=== PATIENT | female | born 1955 | race Asian ===

== ENCOUNTER 2022-03-09 14:14 | Outpatient (CLI) | payer MEDICARE, MEDICAID, SELFPAY | END 2022-03-09 14:15 | disposition home or self-care (01) | PROVIDERS: PCP Family Medicine; Visit Provider Student in an Organized Health Care Education/Training Program | DX: R39.15 Urgency of urination (principal); R32 Unspecified urinary incontinence; R30.0 Dysuria | CPT/HCPCS: 87086 ==

== ENCOUNTER 2022-06-13 07:21 | Outpatient (CLI) | payer MEDICARE, MEDICAID, SELFPAY | END 2022-06-13 07:22 | disposition home or self-care (01) | LOC: INJ CL 07:24 | PROVIDERS: PCP Family Medicine; Visit Provider Family Medicine | DX: M51.36 Other intervertebral disc degeneration, lumbar region (principal); M54.16 Radiculopathy, lumbar region | CPT/HCPCS: 64483; J1100; Q9966 ==

== ENCOUNTER 2022-08-08 09:32 | Outpatient (CLI) | payer MEDICARE, MEDICAID, SELFPAY | END 2022-08-08 09:33 | disposition home or self-care (01) | LOC: INJ CL 09:33 | PROVIDERS: PCP Student in an Organized Health Care Education/Training Program; Visit Provider Family Medicine | DX: M47.816 Spondylosis without myelopathy or radiculopathy, lumbar region (principal) | CPT/HCPCS: 64493; 64494; J0702; Q9966 ==

== ENCOUNTER 2022-12-11 09:30 | Emergency (ER) | payer MEDICARE, OTHER, SELFPAY ==
[2022-12-11 09:35] VITALS: BP 101/71; PULSE 91; RESP 18; TEMP 35.8; O2SAT 96; BMI 36.9
--- NOTE | 2022-12-11 09:52 | ED.PSYCH ---
HPI - Psych General Time Seen by Provider: 09:52 <Malou Granado MD - Last Filed: 12/11/22 16:13> Date Seen: 12/11/22 <Malou Granado MD - Last Filed: 12/11/22 16:13> Chief Complaint: Psychiatric Problem/Disorder <Malou Granado MD - Last Filed: 12/11/22 16:13> Stated Complaint: Mental health <Malou Granado MD - Last Filed: 12/11/22 16:13> Time Seen by Provider: 12/11/22 09:51 <Malou Granado MD - Last Filed: 12/11/22 16:13> Source: patient and RN notes reviewed <Malou Granado MD - Last Filed: 12/11/22 16:13> Mode of arrival: ambulatory <Malou Granado MD - Last Filed: 12/11/22 16:13> Limitations: no limitations <Malou Granado MD - Last Filed: 12/11/22 16:13> History of Present Illness HPI Narrative: Patient is a 67-year-old female coming in with suicidal ideation. She has been thinking about suicide, cannot stop these thoughts. Has thought about carbon monoxide, taking pills, antifreeze. Have reviewed nursing notes, the intake note on her. She has not been sick with anything, denies any fevers chills. She does endorse some mild nausea and mild headache at this time. She has had psychiatric hospitalizations years ago, did have ECT at [place] maybe 7-10 years ago. She had a tele visit with her therapist, this resulted in recommendations to come to the ER per patient report. She sees a Dr. Quintanilla for her therapist at [facility]. Bethnandini godinez does her medication management here at [facility]. She believes she is on for psychiatric medicines at this time including Abilify, bupropion, mirtazapine, sertraline. When ask her if she his taken anything, ingested anything, she states ?not yet?. <Malou Granado MD - Last Filed: 12/11/22 16:13> MD complaint: suicidal ideation <Malou Granado MD - Last Filed: 12/11/22 16:13> Related Data Home Medications: Home Medications Medication Instructions Recorded Confirmed aripiprazole 30 mg tablet 30 mg PO 03/09/22 03/09/22 bupropion HCl 150 mg 24 hr tablet, mg PO 03/09/22 03/09/22 extended release nabumetone 750 mg tablet 750 mg PO 03/09/22 03/09/22 sertraline 100 mg tablet 100 mg PO 03/09/22 03/09/22 trazodone 50 mg tablet 50 mg PO 03/09/22 03/09/22 GNP 12/11/22 aripiprazole 20 mg tablet 20 mg PO DAILY 12/11/22 12/11/22 celecoxib 200 mg capsule 200 mg PO BID 12/11/22 12/11/22 divalproex 250 mg tablet,delayed 250 mg PO QPM 12/11/22 12/11/22 release methocarbamol 500 mg tablet 500 mg PO Q6H PRN muscle spasm 12/11/22 12/11/22 <Malou Granado MD - Last Filed: 12/11/22 16:13> Allergies/Adverse Reactions: Allergies Allergy/AdvReac Type Severity Reaction Status Date / Time Sulfa (Sulfonamide Allergy Mild Rash Verified 03/09/22 13:48 Antibiotics) amoxicillin Allergy Verified 06/13/22 08:06 lurasidone [From Latuda] Allergy Verified 06/13/22 08:06 sulfamethoxazole Allergy Verified 06/13/22 08:06 [From Septra] trimethoprim [From Septra] Allergy Verified 06/13/22 08:06 <Malou Granado MD - Last Filed: 12/11/22 16:13> Review of Systems Status of ROS: Reports: 6 or more systems reviewed and unremarkable except as noted in History and below <Malou Granado MD - Last Filed: 12/11/22 16:13> PFSH PFSH Social History: Social History Smoking Status: Never smoker How often do you have a drink containing alcohol: never AUDIT-C Alcohol total score: 0 Non-prescribed substance use: denies use <Malou Granado MD - Last Filed: 12/11/22 16:13> Exam Const: Vital Signs, click to edit/add: Vital Signs - 24 hr 12/11/22 09:35 12/11/22 17:35 12/11/22 20:57 Temperature 96.4 F L Pulse Rate [Pulse Oximeter] 91 76 65 Respiratory Rate 18 22 18 Blood Pressure [Ri ght Upper Arm] 101/71 137/74 108/65 Pulse Oximetry 96 99 94 Oxygen Delivery Me thod Room Air Room Air Room Air 12/11/22 23:00 12/12/22 01:00 12/12/22 04:00 Temperature Pulse Rate [Pulse Oximeter] 80 Respiratory Rate 16 16 16 Blood Pressure [Ri ght Upper Arm] 130/79 Pulse Oximetry 95 Oxygen Delivery Me thod Room Air <Malou Granado MD - Last Filed: 12/11/22 16:13> Vital Signs, click to edit/add: Vital Signs - 24 hr 12/11/22 09:35 12/11/22 17:35 12/11/22 20:57 Temperature 96.4 F L Pulse Rate [Pulse Oximeter] 91 76 65 Respiratory Rate 18 22 18 Blood Pressure [Ri ght Upper Arm] 101/71 137/74 108/65 Pulse Oximetry 96 99 94 Oxygen Delivery Me thod Room Air Room Air Room Air 12/11/22 23:00 12/12/22 01:00 12/12/22 04:00 Temperature Pulse Rate [Pulse Oximeter] 80 Respiratory Rate 16 16 16 Blood Pressure [Ri ght Upper Arm] 130/79 Pulse Oximetry 95 Oxygen Delivery Me thod Room Air <Bert Lainez MD - Last Filed: 12/11/22 19:44> Vital Signs, click to edit/add: Vital Signs - 24 hr 12/11/22 09:35 12/11/22 17:35 12/11/22 20:57 Temperature 96.4 F L Pulse Rate [Pulse Oximeter] 91 76 65 Respiratory Rate 18 22 18 Blood Pressure [Ri ght Upper Arm] 101/71 137/74 108/65 Pulse Oximetry 96 99 94 Oxygen Delivery Me thod Room Air Room Air Room Air 12/11/22 23:00 12/12/22 01:00 12/12/22 04:00 Temperature Pulse Rate [Pulse Oximeter] 80 Respiratory Rate 16 16 16 Blood Pressure [Ri ght Upper Arm] 130/79 Pulse Oximetry 95 Oxygen Delivery Me thod Room Air <Lito Hinds MD - Last Filed: 12/12/22 07:04> Vital Signs, click to edit/add: Vital Signs - 24 hr 12/11/22 09:35 12/11/22 17:35 12/11/22 20:57 Temperature 96.4 F L Pulse Rate [Pulse Oximeter] 91 76 65 Respiratory Rate 18 22 18 Blood Pressure [Ri ght Upper Arm] 101/71 137/74 108/65 Pulse Oximetry 96 99 94 Oxygen Delivery Me thod Room Air Room Air Room Air 12/11/22 23:00 12/12/22 01:00 12/12/22 04:00 Temperature Pulse Rate [Pulse Oximeter] 80 Respiratory Rate 16 16 16 Blood Pressure [Ri ght Upper Arm] 130/79 Pulse Oximetry 95 Oxygen Delivery Me thod Room Air <Rajesh Zamora MD - Last Filed: 05/08/23 12:22> Documenting provider has reviewed patient's vital signs: yes <Malou Granado MD - Last Filed: 12/11/22 16:13> Common normals: no apparent distress, oriented x3, no limitations, healthy appearing, alert and well nourished <Malou Granado MD - Last Filed: 12/11/22 16:13> General appearance: cooperative, comfortable, well kempt and well developed <Malou Granado MD - Last Filed: 12/11/22 16:13> HENMT: Common normals: normocephalic, head/scalp atraumatic, hearing grossly normal bilaterally and external nose normal <Malou Granado MD - Last Filed: 12/11/22 16:13> Head and scalp: normocephalic and atraumatic <Malou Granado MD - Last Filed: 12/11/22 16:13> Face and sinus: normal facial exam <Malou Granado MD - Last Filed: 12/11/22 16:13> Nose: external nose normal <Malou Granado MD - Last Filed: 12/11/22 16:13> Eye: Common normals: PERRL, EOMs intact bilaterally, conjunctivae normal and no scleral icterus <Malou Granado MD - Last Filed: 12/11/22 16:13> Conjunctiva: conjunctiva(e) normal <Malou Granado MD - Last Filed: 12/11/22 16:13> Pupil: PERRL <Malou Granado MD - Last Filed: 12/11/22 16:13> Neck & C-Spine: Common normals: full ROM, no lymphadenopathy, supple and thyroid normal <Malou Granado MD - Last Filed: 12/11/22 16:13> Thyroid: thyroid normal <Malou Granado MD - Last Filed: 12/11/22 16:13> Resp: Common normals: normal respiratory effort, no retractions, no use of accessory muscles and clear to auscultation bilaterally <Malou Granado MD - Last Filed: 12/11/22 16:13> Auscultation: clear to auscultation bilaterally <Malou Granado MD - Last Filed: 12/11/22 16:13> Cardio: Common normals: regular rate, regular rhythm, S1 normal heart sound, S2 normal heart sound, no gallops, no clicks and no murmurs <Malou Granado MD - Last Filed: 12/11/22 16:13> Rate: regular rate <Malou Granado MD - Last Filed: 12/11/22 16:13> Rhythm: regular rhythm <Malou Granado MD - Last Filed: 12/11/22 16:13> Heart sounds: S1 normal and S2 normal <Malou Granado MD - Last Filed: 12/11/22 16:13> GI: Common normals: Normal to inspection, nondistended, normoactive bowel sounds present, soft to palpation and non-tender <Malou Granado MD - Last Filed: 12/11/22 16:13> Palpation: soft <Malou Granado MD - Last Filed: 12/11/22 16:13> Neuro: Connor Coma Scale: document GCS findings Connor coma scale eye opening: Spontaneous (4) Connor coma scale verbal response: Orientated (5) Connor coma scale motor response: Obey commands (6) Connor coma scale total score: 15 <Malou Granado MD - Last Filed: 12/11/22 16:13> Connor Coma Scale: document GCS findings Kirksey coma scale total score: 15 <Bert Lainez MD - Last Filed: 12/11/22 19:44> [place] Coma Scale: document GCS findings [place] coma scale total score: 15 <Lito Hinds MD - Last Filed: 12/12/22 07:04> [place] Coma Scale: document GCS findings [place] coma scale total score: 15 <Rajesh Zamora MD - Last Filed: 05/08/23 12:22> Common normals: oriented x3, CN's II-XII intact bilaterally, moves all extremities, no focal motor deficits, no sensory deficits noted and gait normal <Malou Granado MD - Last Filed: 12/11/22 16:13> Sensorium/orientation: alert <Malou Granado MD - Last Filed: 12/11/22 16:13> Other: Do note resting tremor in her left hand as I am talking to her and she is sitting on the bed. <Malou Granado MD - Last Filed: 12/11/22 16:13> Psych: Common normals: cooperative, affect normal and speech normal <Malou Granado MD - Last Filed: 12/11/22 16:13> Appearance: well kempt <Malou Granado MD - Last Filed: 12/11/22 16:13> Attitude: calm and engaged <Malou Granado MD - Last Filed: 12/11/22 16:13> Activity/motor behavior: appropriate eye contact <Malou Granado MD - Last Filed: 12/11/22 16:13> Speech: normal speech <Malou Granado MD - Last Filed: 12/11/22 16:13> Course Course Hospital Course: Patient is currently here voluntary, have reviewed with her that I do think given her suicidal ideation that she would be holdable. She does understand, demonstrates agreement to stay for this process and evaluation. Will get the psychiatric telehealth evaluation going, complete appropriate laboratory evaluation. <Malou Granado MD - Last Filed: 12/11/22 16:13> Reevaluation(s) Time of Reevaluation #1: 23:52 <Lito Hinds MD - Last Filed: 12/12/22 07:04> Reevaluation #1: Patient accepted in sign-out from Dr. Lainez, prior records are reviewed. Patient with history depression, prior ECT distant past, presents today with suicide ideation. Patient has been accepted for admission pending transport in the morning. <Lito Hinds MD - Last Filed: 12/12/22 07:04> Consultations Consultation #1: Lynda Baig from psychiatric telehealth services has obtained my history on the patient. She is subsequently going to interview the patient and will call me back with her opinions and recommendations. 1130pm requesting patient transfer to inpatient, patient is voluntary and requesting inpatient as well. <Malou Granado MD - Last Filed: 12/11/22 16:13> Time: 10:38 <Malou Granado MD - Last Filed: 12/11/22 16:13> Vital Signs Vital signs: Initial Vital Signs Temperature 96.4 F L 12/11/22 09:35 Temperature Source Temporal Artery Scan 12/11/22 09:35 Pulse Rate 91 12/11/22 09:35 Respiratory Rate 18 12/11/22 09:35 Blood Pressure 101/71 12/11/22 09:35 Blood Pressure Mean 81 12/11/22 09:35 Blood Pressure Position Supine 12/11/22 09:35 Pulse Oximetry 96 12/11/22 09:35 Oxygen Delivery Method Room Air 12/11/22 09:35 Vital Signs Temperature 96.4 F L 12/11/22 09:35 Pulse Rate 91 12/11/22 09:35 Respiratory Rate 18 12/11/22 09:35 Blood Pressure 101/71 12/11/22 09:35 Pulse Oximetry 96 12/11/22 09:35 Oxygen Delivery Method Room Air 12/11/22 09:35 Temperature 96.4 F L 12/12/22 07:55 Pulse Rate 82 12/12/22 07:55 Respiratory Rate 16 12/12/22 07:55 Blood Pressure 126/78 12/12/22 07:55 Pulse Oximetry 98 12/12/22 07:55 Oxygen Delivery Method Room Air 12/12/22 07:55 <Malou Granado MD - Last Filed: 12/11/22 16:13> Initial Vital Signs Temperature 96.4 F L 12/11/22 09:35 Temperature Source Temporal Artery Scan 12/11/22 09:35 Pulse Rate 91 12/11/22 09:35 Respiratory Rate 18 12/11/22 09:35 Blood Pressure 101/71 12/11/22 09:35 Blood Pressure Mean 81 12/11/22 09:35 Blood Pressure Position Supine 12/11/22 09:35 Pulse Oximetry 96 12/11/22 09:35 Oxygen Delivery Method Room Air 12/11/22 09:35 Vital Signs Temperature 96.4 F L 12/11/22 09:35 Pulse Rate 91 12/11/22 09:35 Respiratory Rate 18 12/11/22 09:35 Blood Pressure 101/71 12/11/22 09:35 Pulse Oximetry 96 12/11/22 09:35 Oxygen Delivery Method Room Air 12/11/22 09:35 Temperature 96.4 F L 12/12/22 07:55 Pulse Rate 82 12/12/22 07:55 Respiratory Rate 16 12/12/22 07:55 Blood Pressure 126/78 12/12/22 07:55 Pulse Oximetry 98 12/12/22 07:55 Oxygen Delivery Method Room Air 12/12/22 07:55 <Bert Lainez MD - Last Filed: 12/11/22 19:44> Initial Vital Signs Temperature 96.4 F L 12/11/22 09:35 Temperature Source Temporal Artery Scan 12/11/22 09:35 Pulse Rate 91 12/11/22 09:35 Respiratory Rate 18 12/11/22 09:35 Blood Pressure 101/71 12/11/22 09:35 Blood Pressure Mean 81 12/11/22 09:35 Blood Pressure Position Supine 12/11/22 09:35 Pulse Oximetry 96 12/11/22 09:35 Oxygen Delivery Method Room Air 12/11/22 09:35 Vital Signs Temperature 96.4 F L 12/11/22 09:35 Pulse Rate 91 12/11/22 09:35 Respiratory Rate 18 12/11/22 09:35 Blood Pressure 101/71 12/11/22 09:35 Pulse Oximetry 96 12/11/22 09:35 Oxygen Delivery Method Room Air 12/11/22 09:35 Temperature 96.4 F L 12/12/22 07:55 Pulse Rate 82 12/12/22 07:55 Respiratory Rate 16 12/12/22 07:55 Blood Pressure 126/78 12/12/22 07:55 Pulse Oximetry 98 12/12/22 07:55 Oxygen Delivery Method Room Air 12/12/22 07:55 <Lito Hinds MD - Last Filed: 12/12/22 07:04> Initial Vital Signs Temperature 96.4 F L 12/11/22 09:35 Temperature Source Temporal Artery Scan 12/11/22 09:35 Pulse Rate 91 12/11/22 09:35 Respiratory Rate 18 12/11/22 09:35 Blood Pressure 101/71 12/11/22 09:35 Blood Pressure Mean 81 12/11/22 09:35 Blood Pressure Position Supine 12/11/22 09:35 Pulse Oximetry 96 12/11/22 09:35 Oxygen Delivery Method Room Air 12/11/22 09:35 Vital Signs Temperature 96.4 F L 12/11/22 09:35 Pulse Rate 91 12/11/22 09:35 Respiratory Rate 18 12/11/22 09:35 Blood Pressure 101/71 12/11/22 09:35 Pulse Oximetry 96 12/11/22 09:35 Oxygen Delivery Method Room Air 12/11/22 09:35 Temperature 96.4 F L 12/12/22 07:55 Pulse Rate 82 12/12/22 07:55 Respiratory Rate 16 12/12/22 07:55 Blood Pressure 126/78 12/12/22 07:55 Pulse Oximetry 98 12/12/22 07:55 Oxygen Delivery Method Room Air 12/12/22 07:55 <Rajesh Zamora MD - Last Filed: 05/08/23 12:22> MDM - Psych MDM Narrative Medical decision making narrative: Care for this patient was transferred to fl at the end of Dr. Scanlon's shift. The patient was being rather selective where she wanted to go for inpatient treatment. I did speak with her that such inpatient options are not easily found and she is agreeable to go wherever there is an opening. I did speak with Dr. Shultz at [facility] in [place]. They are able to take her there for further evaluation and treatment. <Bert Lainez MD - Last Filed: 12/11/22 19:44> Lab Data Attestation: I reviewed the patient's lab results. <Malou Granado MD - Last Filed: 12/11/22 16:13> Labs: Lab Results 12/11/22 12/11/22 12/11/22 Range/Units 10:15 11:32 11:50 WBC 7.44 (4.50-11.00) K/uL RBC 4.41 (4.00-5.20) m/uL Hgb 14.4 (12.0-16.0) gm/dL Hct 43.6 (33.0-51.0) % MCV 99 (80-100) fL MCH 33 (26-34) pg MCHC 33 (32-36) gm/dL RDW Coeff of Birdie 12.2 (11.5-15.5) % Plt Count 250 (140-440) K/uL Neut % (Auto) 57.6 (42.0-72.0) % Lymph % (Auto) 25.1 (20-44) % [place] % (Auto) 6.5 (0.0-11.0) % Eos % (Auto) 9.8 H (0.0-7.0) % Baso % (Auto) 0.5 (0.0-3.0) % Neut # (Auto) 4.28 (1.7-7.0) K/uL Lymph # (Auto) 1.87 (0.90-2.90) K/uL [place] # (Auto) 0.50 (0.00-0.90) K/UL Eos # (Auto) 0.70 H (0.00-0.50) K/uL Baso # (Auto) 0.04 (0.00-0.30) K/uL Sodium 137 (135-149) mmol/L Potassium 4.3 (3.6-5.1) mmol/L Chloride 105 (96-114) mmol/L Carbon Dioxide 21 (20-32) mmol/L BUN 15 (7-30) mg/dL Creatinine 0.8 (0.5-1.5) mg/dL Estimated Creat Clear 50.47 Estimated GFR 82 ml/min Glucose 118 H (60-115) mg/dL Calcium 9.0 (8.4-10.6) mg/dL Total Bilirubin 0.4 (0.1-1.5) mg/dL AST 21 (12-35) U/L ALT 26 (4-35) U/L Alkaline Phosphatase 63 (40-150) U/L Total Protein 6.8 (6.0-8.3) g/dL Albumin 3.7 (3.3-5.0) g/dL TSH 3.100 (0.270-4.200) uIU/mL Urine Color Yellow (Yellow) Urine Appearance Clear (Clear) Urine pH 8.0 (5.0-8.5) Ur Specific [place] 1.020 (1.000-1.030) Urine Protein Negative (Negative) Urine Glucose (UA) Negative (Negative) Urine Ketones Negative (Negative) Urine Blood Negative (Negative) Urine Nitrite Negative (Negative) Urine Bilirubin Negative (Negative) Urine Urobilinogen 0.2 (0.2-1.0) Ur Leukocyte Esterase Negative (Negative) Urine RBC 0-2 (0-2) Urine WBC 0-2 (0-5) Ur Squamous Epith Cells Few (None-Few) Urine Bacteria Few A (None) Salicylates < 1.0 L (1.0-10) mg/dL Urine Opiates Screen Negative (Negative) Ur Oxycodone Screen Negative (Negative) Urine Methadone Screen Negative (Negative) Ur Propoxyphene Screen Negative (Negative) Acetaminophen < 10.0 L (10.0-30.0) ug/mL Ur Barbiturates Screen Negative (Negative) U Tricyclic Antidepress Negative (Negative) Ur Phencyclidine Scrn Negative (Negative) Ur Amphetamines Screen Negative (Negative) U Methamphetamines Scrn Negative (Negative) U Benzodiazepines Scrn Negative (Negative) Urine Cocaine Screen Negative (Negative) U Marijuana (THC) Screen Negative (Negative) Ur Drug Screen Comment See Note Ethyl Alcohol < 0.01 L (0.01-0.03) % SARS-CoV-2 (PCR) Negative SARS-CoV-2 (Negative) <Malou Granado MD - Last Filed: 12/11/22 16:13> Lab Results 12/11/22 12/11/22 12/11/22 Range/Units 10:15 11:32 11:50 WBC 7.44 (4.50-11.00) K/uL RBC 4.41 (4.00-5.20) m/uL Hgb 14.4 (12.0-16.0) gm/dL Hct 43.6 (33.0-51.0) % MCV 99 (80-100) fL MCH 33 (26-34) pg MCHC 33 (32-36) gm/dL RDW Coeff of Birdie 12.2 (11.5-15.5) % Plt Count 250 (140-440) K/uL Neut % (Auto) 57.6 (42.0-72.0) % Lymph % (Auto) 25.1 (20-44) % [place]ward % (Auto) 6.5 (0.0-11.0) % Eos % (Auto) 9.8 H (0.0-7.0) % Baso % (Auto) 0.5 (0.0-3.0) % Neut # (Auto) 4.28 (1.7-7.0) K/uL Lymph # (Auto) 1.87 (0.90-2.90) K/uL [place] # (Auto) 0.50 (0.00-0.90) K/UL Eos # (Auto) 0.70 H (0.00-0.50) K/uL Baso # (Auto) 0.04 (0.00-0.30) K/uL Sodium 137 (135-149) mmol/L Potassium 4.3 (3.6-5.1) mmol/L Chloride 105 (96-114) mmol/L Carbon Dioxide 21 (20-32) mmol/L BUN 15 (7-30) mg/dL Creatinine 0.8 (0.5-1.5) mg/dL Estimated Creat Clear 50.47 Estimated GFR 82 ml/min Glucose 118 H (60-115) mg/dL Calcium 9.0 (8.4-10.6) mg/dL Total Bilirubin 0.4 (0.1-1.5) mg/dL AST 21 (12-35) U/L ALT 26 (4-35) U/L Alkaline Phosphatase 63 (40-150) U/L Total Protein 6.8 (6.0-8.3) g/dL Albumin 3.7 (3.3-5.0) g/dL TSH 3.100 (0.270-4.200) uIU/mL Urine Color Yellow (Yellow) Urine Appearance Clear (Clear) Urine pH 8.0 (5.0-8.5) Ur Specific [place] 1.020 (1.000-1.030) Urine Protein Negative (Negative) Urine Glucose (UA) Negative (Negative) Urine Ketones Negative (Negative) Urine Blood Negative (Negative) Urine Nitrite Negative (Negative) Urine Bilirubin Negative (Negative) Urine Urobilinogen 0.2 (0.2-1.0) Ur Leukocyte Esterase Negative (Negative) Urine RBC 0-2 (0-2) Urine WBC 0-2 (0-5) Ur Squamous Epith Cells Few (None-Few) Urine Bacteria Few A (None) Salicylates < 1.0 L (1.0-10) mg/dL Urine Opiates Screen Negative (Negative) Ur Oxycodone Screen Negative (Negative) Urine Methadone Screen Negative (Negative) Ur Propoxyphene Screen Negative (Negative) Acetaminophen < 10.0 L (10.0-30.0) ug/mL Ur Barbiturates Screen Negative (Negative) U Tricyclic Antidepress Negative (Negative) Ur Phencyclidine Scrn Negative (Negative) Ur Amphetamines Screen Negative (Negative) U Methamphetamines Scrn Negative (Negative) U Benzodiazepines Scrn Negative (Negative) Urine Cocaine Screen Negative (Negative) U Marijuana (THC) Screen Negative (Negative) Ur Drug Screen Comment See Note Ethyl Alcohol < 0.01 L (0.01-0.03) % SARS-CoV-2 (PCR) Negative SARS-CoV-2 (Negative) <Bert Lainez MD - Last Filed: 12/11/22 19:44> Lab Results 06/26/23 06/26/23 06/26/23 Range/Units 10:15 11:32 11:50 WBC 7.44 (4.50-11.00) K/uL RBC 4.41 (4.00-5.20) m/uL Hgb 14.4 (12.0-16.0) gm/dL Hct 43.6 (33.0-51.0) % MCV 99 (80-100) fL MCH 33 (26-34) pg MCHC 33 (32-36) gm/dL RDW Coeff of Birdie 12.2 (11.5-15.5) % Plt Count 250 (140-440) K/uL Neut % (Auto) 57.6 (42.0-72.0) % Lymph % (Auto) 25.1 (20-44) % [place] % (Auto) 6.5 (0.0-11.0) % Eos % (Auto) 9.8 H (0.0-7.0) % Baso % (Auto) 0.5 (0.0-3.0) % Neut # (Auto) 4.28 (1.7-7.0) K/uL Lymph # (Auto) 1.87 (0.90-2.90) K/uL [place] # (Auto) 0.50 (0.00-0.90) K/UL Eos # (Auto) 0.70 H (0.00-0.50) K/uL Baso # (Auto) 0.04 (0.00-0.30) K/uL Sodium 137 (135-149) mmol/L Potassium 4.3 (3.6-5.1) mmol/L Chloride 105 (96-114) mmol/L Carbon Dioxide 21 (20-32) mmol/L BUN 15 (7-30) mg/dL Creatinine 0.8 (0.5-1.5) mg/dL Estimated Creat Clear 50.47 Estimated GFR 82 ml/min Glucose 118 H (60-115) mg/dL Calcium 9.0 (8.4-10.6) mg/dL Total Bilirubin 0.4 (0.1-1.5) mg/dL AST 21 (12-35) U/L ALT 26 (4-35) U/L Alkaline Phosphatase 63 (40-150) U/L Total Protein 6.8 (6.0-8.3) g/dL Albumin 3.7 (3.3-5.0) g/dL TSH 3.100 (0.270-4.200) uIU/mL Urine Color Yellow (Yellow) Urine Appearance Clear (Clear) Urine pH 8.0 (5.0-8.5) Ur Specific [place] 1.020 (1.000-1.030) Urine Protein Negative (Negative) Urine Glucose (UA) Negative (Negative) Urine Ketones Negative (Negative) Urine Blood Negative (Negative) Urine Nitrite Negative (Negative) Urine Bilirubin Negative (Negative) Urine Urobilinogen 0.2 (0.2-1.0) Ur Leukocyte Esterase Negative (Negative) Urine RBC 0-2 (0-2) Urine WBC 0-2 (0-5) Ur Squamous Epith Cells Few (None-Few) Urine Bacteria Few A (None) Salicylates < 1.0 L (1.0-10) mg/dL Urine Opiates Screen Negative (Negative) Ur Oxycodone Screen Negative (Negative) Urine Methadone Screen Negative (Negative) Ur Propoxyphene Screen Negative (Negative) Acetaminophen < 10.0 L (10.0-30.0) ug/mL Ur Barbiturates Screen Negative (Negative) U Tricyclic Antidepress Negative (Negative) Ur Phencyclidine Scrn Negative (Negative) Ur Amphetamines Screen Negative (Negative) U Methamphetamines Scrn Negative (Negative) U Benzodiazepines Scrn Negative (Negative) Urine Cocaine Screen Negative (Negative) U Marijuana (THC) Screen Negative (Negative) Ur Drug Screen Comment See Note Ethyl Alcohol < 0.01 L (0.01-0.03) % SARS-CoV-2 (PCR) Negative SARS-CoV-2 (Negative) <Lito Hinds MD - Last Filed: 12/12/22 07:04> Lab Results 12/11/22 12/11/22 12/11/22 Range/Units 10:15 11:32 11:50 WBC 7.44 (4.50-11.00) K/uL RBC 4.41 (4.00-5.20) m/uL Hgb 14.4 (12.0-16.0) gm/dL Hct 43.6 (33.0-51.0) % MCV 99 (80-100) fL MCH 33 (26-34) pg MCHC 33 (32-36) gm/dL RDW Coeff of Birdie 12.2 (11.5-15.5) % Plt Count 250 (140-440) K/uL Neut % (Auto) 57.6 (42.0-72.0) % Lymph % (Auto) 25.1 (20-44) % [place] % (Auto) 6.5 (0.0-11.0) % Eos % (Auto) 9.8 H (0.0-7.0) % Baso % (Auto) 0.5 (0.0-3.0) % Neut # (Auto) 4.28 (1.7-7.0) K/uL Lymph # (Auto) 1.87 (0.90-2.90) K/uL [place] # (Auto) 0.50 (0.00-0.90) K/UL Eos # (Auto) 0.70 H (0.00-0.50) K/uL Baso # (Auto) 0.04 (0.00-0.30) K/uL Sodium 137 (135-149) mmol/L Potassium 4.3 (3.6-5.1) mmol/L Chloride 105 (96-114) mmol/L Carbon Dioxide 21 (20-32) mmol/L BUN 15 (7-30) mg/dL Creatinine 0.8 (0.5-1.5) mg/dL Estimated Creat Clear 50.47 Estimated GFR 82 ml/min Glucose 118 H (60-115) mg/dL Calcium 9.0 (8.4-10.6) mg/dL Total Bilirubin 0.4 (0.1-1.5) mg/dL AST 21 (12-35) U/L ALT 26 (4-35) U/L Alkaline Phosphatase 63 (40-150) U/L Total Protein 6.8 (6.0-8.3) g/dL Albumin 3.7 (3.3-5.0) g/dL TSH 3.100 (0.270-4.200) uIU/mL Urine Color Yellow (Yellow) Urine Appearance Clear (Clear) Urine pH 8.0 (5.0-8.5) Ur Specific [place] 1.020 (1.000-1.030) Urine Protein Negative (Negative) Urine Glucose (UA) Negative (Negative) Urine Ketones Negative (Negative) Urine Blood Negative (Negative) Urine Nitrite Negative (Negative) Urine Bilirubin Negative (Negative) Urine Urobilinogen 0.2 (0.2-1.0) Ur Leukocyte Esterase Negative (Negative) Urine RBC 0-2 (0-2) Urine WBC 0-2 (0-5) Ur Squamous Epith Cells Few (None-Few) Urine Bacteria Few A (None) Salicylates < 1.0 L (1.0-10) mg/dL Urine Opiates Screen Negative (Negative) Ur Oxycodone Screen Negative (Negative) Urine Methadone Screen Negative (Negative) Ur Propoxyphene Screen Negative (Negative) Acetaminophen < 10.0 L (10.0-30.0) ug/mL Ur Barbiturates Screen Negative (Negative) U Tricyclic Antidepress Negative (Negative) Ur Phencyclidine Scrn Negative (Negative) Ur Amphetamines Screen Negative (Negative) U Methamphetamines Scrn Negative (Negative) U Benzodiazepines Scrn Negative (Negative) Urine Cocaine Screen Negative (Negative) U Marijuana (THC) Screen Negative (Negative) Ur Drug Screen Comment See Note Ethyl Alcohol < 0.01 L (0.01-0.03) % SARS-CoV-2 (PCR) Negative SARS-CoV-2 (Negative) <Rajesh Zamora MD - Last Filed: 05/08/23 12:22> Discharge Plan Discharge Clinical Impression: Depression with suicidal ideation <Malou Granado MD - Last Filed: 12/11/22 16:13> Patient Disposition: Xfer Psychiatric Hosp <Malou Granado MD - Last Filed: 12/11/22 16:13> Condition: Unchanged <Malou Granado MD - Last Filed: 12/11/22 16:13> Prescriptions: No Action bupropion HCl 150 mg tablet extended release 24 hr PO sertraline 100 mg tablet 100 mg PO nabumetone 750 mg tablet 750 mg PO trazodone 50 mg tablet 50 mg PO aripiprazole 30 mg tablet 30 mg PO celecoxib 200 mg capsule 200 mg PO BID divalproex 250 mg tablet,delayed release (DR/EC) 250 mg PO QPM aripiprazole 20 mg tablet 20 mg PO DAILY GNP methocarbamol 500 mg tablet 500 mg PO Q6H PRN (Reason: muscle spasm) <Malou Granado MD - Last Filed: 12/11/22 16:13> Stand Alone Forms: [facility] Info Instructions <Malou Granado MD - Last Filed: 12/11/22 16:13>
[2022-12-11 10:23] LABS: Basophils Absolute Auto 0.04 K/uL (0.00-0.30); Basophils Percent Auto 0.5 % (0.0-3.0); Eosinophils Percent Auto 9.8 % (0.0-7.0); Hematocrit 43.6 % (33.0-51.0); Hemoglobin* 14.4 gm/dL (12.0-16.0); Immature Granulocytes Abs Auto 0.04 K/uL (0.00-0.30); Immature Granulocytes Pct Auto 0.5 %; Lymphocytes Absolute Auto 1.87 K/uL (0.90-2.90); Lymphocytes Percent Auto 25.1 % (20-44); Mean Corpuscular HGB Conc 33 gm/dL (32-36); Mean Corpuscular Hemoglobin 33 pg (26-34); Mean Corpuscular Volume 99 fL (80-100); Monocytes Percent Auto 6.5 % (0.0-11.0); Neutrophils Absolute Auto 4.28 K/uL (1.7-7.0); Neutrophils Percent Auto 57.6 % (42.0-72.0); Platelet Count* 250 K/uL (140-440); RDW Coefficient of Variation % 12.2 % (11.5-15.5); Red Blood Count 4.41 m/uL (4.00-5.20); White Blood Count* 7.44 K/uL (4.50-11.00)
[2022-12-11 10:25] LABS: Slide Review Reflex No
[2022-12-11 10:38] LABS: Albumin* 3.7 g/dL (3.3-5.0); Chloride* 105 mmol/L (96-114); Sodium* 137 mmol/L (135-149)
[2022-12-11 10:39] LABS: Potassium* 4.3 mmol/L (3.6-5.1)
[2022-12-11 10:41] LABS: Aspartate Amino Transferase* 21 U/L (12-35); Bilirubin Total* 0.4 mg/dL (0.1-1.5); Carbon Dioxide* 21 mmol/L (20-32); Creatinine* 0.8 mg/dL (0.5-1.5); Est. Creatinine Clearance* 50.47; Estimated Glomerular Filt Rate 82 ml/min; Total Protein* 6.8 g/dL (6.0-8.3)
[2022-12-11 10:42] LABS: Alanine Aminotransferase* 26 U/L (4-35); Alkaline Phosphatase* 63 U/L (40-150); Blood Urea Nitrogen* 15 mg/dL (7-30); Glucose* 118 mg/dL (60-115)
[2022-12-11 10:51] LABS: Acetaminophen* < 10.0 ug/mL (10.0-30.0); Ethanol* < 0.01 % (0.01-0.03); Salicylate* < 1.0 mg/dL (1.0-10)
--- NOTE | 2022-12-11 12:06 | ED.NURSE ---
Patient has belongings in medication room and has changed into scubs. Patient is cooperative and has completed DEC assessment. She is in agreement with need for hospitalization and process for placement was explained. Able to make needs known and using call-light appropriately.
[2022-12-11 12:08] LABS: Appearance Urine Clear (Clear); Bilirubin Urine Negative (Negative); Blood Urine Negative (Negative); Color Urine Yellow (Yellow); Glucose Urine Negative (Negative); Ketones Urine Negative (Negative); Leukocyte Esterase Urine Negative (Negative); Nitrite Urine Negative (Negative); Protein Urine Negative (Negative); Urobilinogen Urine 0.2 (0.2-1.0)
[2022-12-11 12:13] LABS: Amphetamine Screen Urine Negative (Negative); Barbiturate Screen Urine Negative (Negative); Benzodiazepines Screen Urine Negative (Negative); Cannabinoid Screen Urine Negative (Negative); Cocaine Screen Urine Negative (Negative); Methadone Screen Urine Negative (Negative); Methamphetamines Screen Urine Negative (Negative); Opiate Screen Urine Negative (Negative); Oxycodone Screen Urine Negative (Negative); Phencyclidine Screen Urine Negative (Negative); Tricyclic Antidepressant Urine Negative (Negative)
[2022-12-11 12:18] LABS: SARS PCR* Negative SARS-CoV-2 (Negative)
[2022-12-11 12:20] LABS: Bacteria Urine Few; RBC Urine 0-2 (0-2); Squamous Epithelial Cell Urine Few (None-Few); WBC Urine 0-2 (0-5)
--- NOTE | 2022-12-11 12:21 | ED.NURSE ---
talked to Francisca at [facility], they will review pt. fax may katelynn, note, labs and 2 page [facility] form to [phone]
--- NOTE | 2022-12-11 13:09 | ED.NURSE ---
Pt in room eating lunch at this time.
--- NOTE | 2022-12-11 13:48 | ED.NURSE ---
Pt ate 100% of meal. Pt now resting comfortably on bed.
--- NOTE | 2022-12-11 14:59 | ED.NURSE ---
Patient sleeping in room at this time. Pt's personal phone at bedside.
--- NOTE | 2022-12-11 15:51 | ED.NURSE ---
Pt is sleeping comfortably in bed at this time. Video monitoring in place.
[2022-12-11 17:35] VITALS: BP 137/74; PULSE 76; RESP 22; O2SAT 99
--- NOTE | 2022-12-11 19:10 | ED.NURSE ---
[facility] called and accepted pt, dr. conner talked to their doctor and gave report.
[2022-12-11] MEDS: ACETAMINOPHEN 500 MG TABLET 1000 MG PO (19:51)
[2022-12-11 20:57] VITALS: BP 108/65; PULSE 65; RESP 18; O2SAT 94
--- NOTE | 2022-12-11 21:15 | PC.NURSE ---
patient states headache is better, MD spoke with patient about plan of care and she states understanding. patient in room brushing teeth at this time. monitored on video surveillance for safety.
[2022-12-11 23:00] VITALS: RESP 16
[2022-12-12 01:00] VITALS: RESP 16
[2022-12-12 04:00] VITALS: BP 130/79; PULSE 80; RESP 16; O2SAT 95
--- NOTE | 2022-12-12 04:16 | PC.NURSE ---
patient up to BR independently, VS assessed, patient states headache has resolved and she has been able to sleep well, states she is going to go back to sleep at this time. continues to be cooperative and pleasant
[2022-12-12 07:55] VITALS: BP 126/78; PULSE 82; RESP 16; TEMP 35.8; O2SAT 98
--- NOTE | 2022-12-12 08:07 | ED.NURSE ---
wanted to shower. this was provided. had a headache last night and reports that this is better, 2/.
--- NOTE | 2022-12-12 08:32 | ED.NURSE ---
Patient has concerns about how she will get home from [place]. Spoke with patient's brother, Gonzales ([phone]) who stated that was too far and he has concerns for her going there. Would like patient to come to their house. Reported to brother that [facility] recommends inpatient psych therapy and that patient is voluntary right now but holdable. Called patients [facility] high school social studies teacher Tammy Almanza ([phone] OR [phone]) who stated they will find a ride back for her when she is discharged. They recommended that patient sign a release of information once she gets there so they can help patient get back to [place] once discharged. Updated patients brother Gonzales of this information.
--- NOTE | 2022-12-12 09:14 | ED.NURSE ---
report given to Gorge Starks on pt at 0914. demurrage worker is Tammy Almanza, her number is [phone], or [phone].
== END 2022-12-12 08:45 ==
PROVIDERS: Family Medicine; Emergency Provider Student in an Organized Health Care Education/Training Program; PCP Student in an Organized Health Care Education/Training Program
DX: R45.851 Suicidal ideations (principal); F32.A Depression, unspecified
CPT/HCPCS: 36415; 80053; 80143; 80179; 80306; 81001; 82077; 84443; 85025; 87086; 87635; 99285; A9270

== ENCOUNTER 2023-11-12 21:32 | Emergency (ER) | payer MEDICARE, OTHER, SELFPAY ==
--- NOTE | 2023-11-12 21:33 | ED_ITS ---
HPI - General Adult General Date Seen: 11/12/23 Chief complaint: Cough Stated complaint: cough, post nasal drip Time Seen by Provider: 11/12/23 21:33 History of Present Illness HPI narrative: 68-year-old female presenting to the ER this evening for evaluation of cough and nasal drainage. She has had a cough ongoing for 5 days. No known exposure to any specific person within known illness. No fever. Patient has history of depression, borderline personality, PTSD, eating disorder, schizoaffective disorder, obstructive sleep apnea, overactive bladder, hypercholesterolemia, vitamin-D deficiency, elevated BMI. She is a nonsmoker. No history of asthma or lung disease. No known sick exposures. She has been sick since last with the nasal congestion and cough. Cough is productive of sputum that is mostly clear. She is also having fairly copious clear nasal drainage. Cough has been getting worse and keeping her up at night. She is not short of breath. No chest pain. No fevers. No constitutional symptoms. She had a little bit of diarrhea the other day but no nausea or vomiting. She notes a decreased sense of smell. She is not diabetic or immunosuppressed. She called the [facility] to try to get an appointment for a checkup with her doctor. However the [facility] triage nurse insisted that she come to the ER. Related Data Home Medications ?Medication ?Instructions ?Recorded ?Confirmed aripiprazole 30 mg tablet 30 mg PO 03/09/22 03/09/22 bupropion HCl 150 mg 24 hr tablet, mg PO 03/09/22 03/09/22 extended release nabumetone 750 mg tablet 750 mg PO 03/09/22 03/09/22 sertraline 100 mg tablet 100 mg PO 03/09/22 03/09/22 trazodone 50 mg tablet 50 mg PO 03/09/22 03/09/22 GNP 12/11/22 aripiprazole 20 mg tablet 20 mg PO DAILY 12/11/22 12/11/22 celecoxib 200 mg capsule 200 mg PO BID 12/11/22 12/11/22 divalproex 250 mg tablet,delayed 250 mg PO QPM 12/11/22 12/11/22 release methocarbamol 500 mg tablet 500 mg PO Q6H PRN muscle spasm 12/11/22 12/11/22 Previous Rx's ?Medication ?Instructions ?Recorded benzonatate 100 mg capsule 100 mg PO TID PRN cough #14 caps 11/12/23 Allergies Allergy/AdvReac Type Severity Reaction Status Date / Time Sulfa (Sulfonamide Allergy Mild Rash Verified 03/09/22 13:48 Antibiotics) amoxicillin Allergy Verified 06/13/22 08:06 lurasidone [From Latuda] Allergy Verified 06/13/22 08:06 sulfamethoxazole Allergy Verified 06/13/22 08:06 [From Septra] trimethoprim [From Septra] Allergy Verified 06/13/22 08:06 [facility] Social History Smoking Status: Never smoker How often do you have a drink containing alcohol: never AUDIT-C Alcohol total score: 0 Non-prescribed substance use: denies use Exam Narrative: Exam Narrative: Constitutional: Appears well-developed and well-nourished. Alert. Conversant and politely. Non toxic. HENT: Head: Atraumatic. Nose: Copious nonpurulent rhinorrhea bilaterally. No definite mucosal edema. No epistaxis. No signs of trauma. Mouth/Throat: Oral mucosa is clear and moist. no trismus. Pharynx normal. Tonsils very small bilaterally and symmetric. No tonsillar enlargement, erythema, or exudate. Eyes: Conjunctivae normal. EOM normal. Pupils equal, round, and reactive to light. No scleral icterus. Neck: Normal range of motion. Neck supple. No tracheal deviation present. Cardiovascular: Normal rate, regular rhythm. No gallop. No friction rub. No murmur heard. Symmetric radial artery pulses Pulmonary/Chest: Effort normal. Frequent, wet sound and cough. No stridor. No respiratory distress. Bilaterally coarse rhonchi. Unclear if these are referred from upper airway congestion or due to bronchospasm. No change after neb . No tenderness. Abdominal: Soft. No distension. No mass. No tenderness. No rebound. No guarding. Musculoskeletal: RUE: Normal range of motion. No tenderness. No deformity LUE: Normal range of motion. No tenderness. No deformity RLE: Normal range of motion. No edema. No tenderness. No deformity LLE: Normal range of motion. No edema. No tenderness. No deformity Lymph: No cervical adenopathy. Neurological: Alert and oriented to person, place, and time. Normal strength. CN II-VII intact. No sensory deficit. GCS eye subscore is 4. GCS verbal subscore is 5. GCS motor subscore is 6. Normal coordination Skin: Skin is warm and dry. No rash noted. No pallor. Normal capillary refill. Psychiatric: Normal mood. Normal affect. Const: Vital Signs, click to edit/add: Vital Signs - 24 hr 11/12/23 21:38 Temperature 97.3 F L Pulse Rate [Pulse Oximeter] 91 Respiratory Rate 16 Blood Pressure [Ri t Upper Arm] 149/89 H Pulse Oximetry 93 Oxygen Delivery Me thod Room Air Course Course ED Course: Recheck-cough and lung sounds largely on drainage after neb. Patient notes improvement in her nasal congestion after Afrin. Vital Signs Vital signs: Initial Vital Signs Temperature 97.3 F L 11/12/23 21:38 Temperature Source Temporal Artery Scan 11/12/23 21:38 Pulse Rate 91 11/12/23 21:38 Respiratory Rate 16 11/12/23 21:38 Blood Pressure 149/89 H 11/12/23 21:38 Blood Pressure Mean 109 H 11/12/23 21:38 Blood Pressure Position Sitting 11/12/23 21:38 Pulse Oximetry 93 11/12/23 21:38 Oxygen Delivery Method Room Air 11/12/23 21:38 Vital Signs Temperature 97.3 F L 11/12/23 21:38 Pulse Rate 91 11/12/23 21:38 Respiratory Rate 16 11/12/23 21:38 Blood Pressure 149/89 H 11/12/23 21:38 Pulse Oximetry 93 11/12/23 21:38 Oxygen Delivery Method Room Air 11/12/23 21:38 Temperature 97.3 F L 11/12/23 21:38 Pulse Rate 91 11/12/23 21:38 Respiratory Rate 16 11/12/23 21:38 Blood Pressure 149/89 H 11/12/23 21:38 Pulse Oximetry 93 11/12/23 21:38 Oxygen Delivery Method Room Air 11/12/23 21:38 Medications Administered Medications: Discontinued Medications Generic Name Dose Route Start Last Admin Trade Name Freq PRN Reason Stop Dose Admin Albuterol 2.5 mg 11/12/23 21:58 11/12/23 22:07 Albuterol Sulfate 2.5 Mg/3 Ml Vial.Neb NEB 11/12/23 21:59 2.5 mg ONCE ONE Administration Benzonatate 100 mg 11/12/23 22:34 11/12/23 22:45 Benzonatate 100 Mg Capsule PO 11/12/23 22:35 100 mg ONCE ONE Administration Oxymetazoline HCl 1 spray 11/12/23 21:58 11/12/23 22:07 Oxymetazoline 0.05% Nasal Williamson NOSTRIL-B 1 spray BID PRN Administration Medical Decision Making MDM Narrative Medical decision making narrative: This patient presents for evaluation of cough and nasal congestion ongoing for 5 days. This is consistent with an upper respiratory tract infection. Viral testing negative for coronavirus, RSV, influenza. There is no signs at this point of serious bacterial infection such as OM, RPA, epiglottitis, [employer], strep pharyngitis, pneumonia, sinusitis, meningitis, bacteremia, serious bacterial infection. Her lung sounds were a bit coarse but unclear if this was due to referred upper airway noises due to upper airway congestion or possibly infiltrates. We did obtain two view chest x-ray which is clear. There are no significant gastrointestinal symptoms at this point and no signs of dehydration. Will treat supportively with cough medicine (Shane Miranda). Close followup with primary care physician is indicated. Return to ED for fever > 103, protracted vomiting, confusion, or other worsening. Questions answered. She is agreeable. 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 Lab Data Labs: Lab Results 11/12/23 Range/Units 21:55 SARS-CoV-2 (PCR) Negative SARS-CoV-2 (Negative) Influenza Type A (PCR) Negative PCR FLU A (Negative) Influenza Type B (PCR) Negative PCR FLU B (Negative) RSV (PCR) Negative PCR RSV (Negative) Imaging Data Chest x-ray: Attestation: I have reviewed the pertinent imaging results. My impression: Normal cardiac silhouette. Normal mediastinum. Clear lung cerda. No infiltrates. No pulmonary edema. No pleural effusions. No visible rib fractures. Radiologist's impression: IMPRESSION: 1. No acute cardiopulmonary disease is seen. Discharge Plan Discharge Clinical Impression: Cough Patient Disposition: Home, Self-Care Condition: Stable Instructions: Acute Cough (ED) Additional Instructions: Please follow-up with your doctor if not improving within 2 days. Come back to the ER right away if you have any worsening symptoms such as worsening trouble breathing, chest pain, high fever, weakness, or any other problems. Use the prescription cough medicine if needed help with cough. Drink plenty of fluids. You can try humidifier to help reduce her nasal congestion. Use the Afrin nasal spray twice daily as needed for the next 2 days to help reduce nasal congestion. Prescriptions: New benzonatate 100 mg capsule 100 mg PO TID PRN (Reason: cough) Qty: 14 0RF No Action bupropion HCl 150 mg tablet extended release 24 hr PO sertraline 100 mg tablet 100 mg PO nabumetone 750 mg tablet 750 mg PO trazodone 50 mg tablet 50 mg PO aripiprazole 30 mg tablet 30 mg PO celecoxib 200 mg capsule 200 mg PO BID divalproex 250 mg tablet,delayed release (DR/EC) 250 mg PO QPM aripiprazole 20 mg tablet 20 mg PO DAILY GNP methocarbamol 500 mg tablet 500 mg PO Q6H PRN (Reason: muscle spasm) Follow Up/Referrals: Beth Keith PA-C [Primary Care Provider] - Stand Alone Forms: [employer] Info Instructions
[2023-11-12 21:38] VITALS: BP 149/89; PULSE 91; RESP 16; TEMP 36.3; O2SAT 93; BMI 38.3
[2023-11-12] MEDS: ALBUTEROL SULFATE 2.5 MG/3 ML VIAL.NEB NEB (22:07)
[2023-11-12] MEDS: OXYMETAZOLINE 0.05% NASAL SPRAY 1 SPRAY NOSTRIL-B (22:07)
[2023-11-12 22:41] LABS: PCR FLU A Negative PCR FLU A (Negative); PCR FLU B Negative PCR FLU B (Negative); PCR RSV Negative PCR RSV (Negative); SARS PCR* Negative SARS-CoV-2 (Negative)
[2023-11-12] MEDS: BENZONATATE 100 MG CAPSULE PO (22:45)
--- NOTE | 2023-11-12 22:51 | CRLHL7_ITS ---
For Patients: As a result of the Century Cures Act, medical imaging exams and procedure reports are released immediately into your electronic medical record. You may view this report before your referring provider. If you have questions, please contact your health care provider. INDICATION: Cough TECHNIQUE: Chest radiograph 2 views COMPARISON: None FINDINGS: The sensitivity and specificity of the exam are moderately limited by the patient`s body habitus. Mediastinum: The mediastinum is normal in appearance. The heart silhouette is normal in size and morphology. Lung: Both lungs are unremarkable in appearance. No sign of pleural effusion seen. No pneumothorax is identified. Bone and Soft tissue: Unremarkable for age. IMPRESSION: 1. No acute cardiopulmonary disease is seen. Dictated by: Brennon Duffy MD @ 11/12/2023 23:22:33 (Electronically Signed)
== END 2023-11-12 23:34 | disposition home or self-care (01) ==
PROVIDERS: Emergency Provider Emergency Medicine; PCP Student in an Organized Health Care Education/Training Program
DX: R05.1 Acute cough (principal)
CPT/HCPCS: 71046; 87631; 94640; 99282; 99283; A9270

== ENCOUNTER 2024-04-28 15:10 | Emergency (ER) | payer MEDICARE, OTHER, SELFPAY ==
[2024-04-28 15:18] VITALS: BP 113/72; PULSE 97; RESP 18; TEMP 36.7; O2SAT 95; BMI 36.6
--- NOTE | 2024-04-28 17:11 | ED.PSYCH ---
HPI - Psych General Time Seen by Provider: 17:12 <Lito Hinds MD - Last Filed: 04/28/24 22:49> Date Seen: 04/28/24 <Lito Hinds MD - Last Filed: 04/28/24 22:49> Chief Complaint: Psychiatric Problem/Disorder <Lito Hinds MD - Last Filed: 04/28/24 22:49> Stated Complaint: Mental health <Lito Hinds MD - Last Filed: 04/28/24 22:49> Time Seen by Provider: 04/28/24 17:11 <Lito Hinds MD - Last Filed: 04/28/24 22:49> History of Present Illness HPI Narrative: 68 y/o female who presents with depression with SI, ongoing but worse recently. Patient lives in [facility]. Eating OK, increased alcohol use until I pass out. Last drink around noon today. Patient reports plan for suicide but declines to tell how she would hurt herself lots of ideas. Patient reports that she comes in after welfare check, she an appointment with her therapist today who called EMS to check on the patient likely due to worsening mental health. <Lito Hinds MD - Last Filed: 04/28/24 22:49> Related Data Home Medications: Home Medications ?Medication ?Instructions ?Recorded ?Confirmed bupropion HCl 150 mg 24 hr tablet, 300 mg PO DAILY 03/09/22 04/29/24 extended release sertraline 100 mg tablet 150 mg PO DAILY 03/09/22 04/29/24 GNP 9 mg PO QHS 12/11/22 04/29/24 celecoxib 200 mg capsule 200 mg PO DAILY 12/11/22 04/29/24 lurasidone 80 mg tablet 80 mg PO DAILY 04/29/24 04/29/24 mirtazapine 7.5 mg tablet 7.5 mg PO QPM 04/29/24 04/29/24 oxycodone-acetaminophen 5 mg-325 1 tab PO 3XD PRN pain 04/29/24 04/29/24 mg tablet sennosides 8.6 mg tablet (senna) 8.6 - 17.2 mg PO DAILY PRN 04/29/24 04/29/24 <Lito Hinds MD - Last Filed: 04/28/24 22:49> Allergies/Adverse Reactions: Allergies Allergy/AdvReac Type Severity Reaction Status Date / Time Sulfa (Sulfonamide Allergy Mild Rash Verified 03/09/22 13:48 Antibiotics) amoxicillin Allergy Verified 06/13/22 08:06 sulfamethoxazole (From Allergy Verified 06/13/22 08:06 Septra) trimethoprim (From ) Allergy Verified 06/13/22 08:06 <Lito Hidns MD - Last Filed: 04/28/24 22:49> [facility] Social History: Social History Smoking Status: Never smoker How often do you have a drink containing alcohol: never AUDIT-C Alcohol total score: 0 Non-prescribed substance use: denies use <Lito Hinds MD - Last Filed: 04/28/24 22:49> Exam Narrative: Exam Narrative: General: Well-developed and well-nourished, no acute distress Head: Atraumatic and normocephalic Eyes: Pupils are equal reactive, extraocular motions intact, conjunctiva clear ENT: External nose and ears are normal, posterior pharynx without erythema or exudate Neck: No midline cervical tenderness, full spontaneous range of motion the neck, trachea midline, no adenopathy Heart: Regular rate and rhythm no murmurs or thrills Lungs: Clear to auscultation bilaterally without wheezes or crackles Abdomen: Soft, nontender, nondistended with active bowel sounds Musculoskeletal: No tenderness, deformity, or edema Neurologic: Awake, alert, and oriented x3, no gross focal neurologic deficits, cranial nerves intact as tested Psych: Suicide ideation with plan, guarded responses to question Skin: No rashes <Lito Hinds MD - Last Filed: 04/28/24 22:49> Const: Vital Signs, click to edit/add: Vital Signs - 24 hr 04/28/24 15:18 04/28/24 23:39 04/29/24 07:31 Temperature 98.1 F 97.8 F Pulse Rate [Pulse Oximeter] 97 98 72 Respiratory Rate 18 16 16 Blood Pressure [Ri ght Upper Arm] 113/72 126/81 138/81 Pulse Oximetry 95 98 97 Oxygen Delivery Me thod Room Air Room Air Room Air 04/29/24 09:52 Temperature 98.1 F Pulse Rate [Pulse Oximeter] 81 Respiratory Rate 16 Blood Pressure [Ri ght Upper Arm] 135/78 Pulse Oximetry 97 Oxygen Delivery Me thod Room Air <Lito Hinds MD - Last Filed: 04/28/24 22:49> Vital Signs, click to edit/add: Vital Signs - 24 hr 04/28/24 15:18 04/28/24 23:39 04/29/24 07:31 Temperature 98.1 F 97.8 F Pulse Rate [Pulse Oximeter] 97 98 72 Respiratory Rate 18 16 16 Blood Pressure [Ri ght Upper Arm] 113/72 126/81 138/81 Pulse Oximetry 95 98 97 Oxygen Delivery Me thod Room Air Room Air Room Air 04/29/24 09:52 Temperature 98.1 F Pulse Rate [Pulse Oximeter] 81 Respiratory Rate 16 Blood Pressure [Ri ght Upper Arm] 135/78 Pulse Oximetry 97 Oxygen Delivery Me thod Room Air <Alex Young MD - Last Filed: 04/29/24 07:27> Vital Signs, click to edit/add: Vital Signs - 24 hr 04/28/24 15:18 04/28/24 23:39 04/29/24 07:31 Temperature 98.1 F 97.8 F Pulse Rate [Pulse Oximeter] 97 98 72 Respiratory Rate 18 16 16 Blood Pressure [Ri ght Upper Arm] 113/72 126/81 138/81 Pulse Oximetry 95 98 97 Oxygen Delivery Me thod Room Air Room Air Room Air 04/29/24 09:52 Temperature 98.1 F Pulse Rate [Pulse Oximeter] 81 Respiratory Rate 16 Blood Pressure [Ri ght Upper Arm] 135/78 Pulse Oximetry 97 Oxygen Delivery Me thod Room Air <Cristian Kurtz DO - Last Filed: 04/29/24 10:16> Course Course ED Course: Reviewed chart from November 2022 when patient was seen for depression and SI, transferred for inpatient admission and treatment. Patient presents today with worsening depression and suicide ideation wall ?since the election? but ongoing suicidal thoughts which have been longstanding. She reports a plan but will not tell me what it is. She reports increased alcohol consumption drinking daily ?until I pass out. ? On exam here, patient tends to minimize her symptoms, poor eye contact and appropriately interactive. Labs ordered along with behavioral health assessment but at this point is holdable and likely will need inpatient treatment. <Lito Hinds MD - Last Filed: 04/28/24 22:49> Reevaluation(s) Time of Reevaluation #1: 17:34 <Lito Hinds MD - Last Filed: 04/28/24 22:49> Reevaluation #1: Reviewed telehealth visit from today with psychologist, noted that ?patient stated if asked that would lie about ability to commit to safety? and also ?did not want to live and did not care if she . Patient is currently taking Wellbutrin, Latuda, Remeron, Zoloft, Ingrezza <Lito Hinds MD - Last Filed: 04/28/24 22:49> Time of Reevaluation #2: 18:19 <Lito Hinds MD - Last Filed: 04/28/24 22:49> Reevaluation #2: Labs ordered and independently interpreted by me with mild hypokalemia, normal magnesium. Also low bicarbonate but no gap and no evidence for DKA, this likely represents dehydration. Slight elevation in the AST and ALT likely related to alcohol use, alcohol level is negative, COVID test negative. Patient is medically stable for behavioral health admission <Lito Hinds MD - Last Filed: 04/28/24 22:49> Time of Reevaluation #3: 00:00 <Lito Hinds MD - Last Filed: 04/28/24 22:49> Reevaluation #3: Sign out to oncoming provider pending Behavioral Health placement. <Lito Hinds MD - Last Filed: 04/28/24 22:49> Vital Signs Vital signs: Initial Vital Signs Temperature 98.1 F 04/28/24 15:18 Temperature Source Temporal Artery Scan 04/28/24 15:18 Pulse Rate 97 04/28/24 15:18 Pulse Rhythm Regular 04/28/24 15:18 Respiratory Rate 18 04/28/24 15:18 Blood Pressure 113/72 04/28/24 15:18 Blood Pressure Mean 85 04/28/24 15:18 Blood Pressure Position Sitting 04/28/24 15:18 Pulse Oximetry 95 04/28/24 15:18 Oxygen Delivery Method Room Air 04/28/24 15:18 Vital Signs Temperature 98.1 F 04/28/24 15:18 Pulse Rate 97 04/28/24 15:18 Respiratory Rate 18 04/28/24 15:18 Blood Pressure 113/72 04/28/24 15:18 Pulse Oximetry 95 04/28/24 15:18 Oxygen Delivery Method Room Air 04/28/24 15:18 Temperature 98.1 F 04/29/24 09:52 Pulse Rate 81 04/29/24 09:52 Respiratory Rate 16 04/29/24 09:52 Blood Pressure 135/78 04/29/24 09:52 Pulse Oximetry 97 04/29/24 09:52 Oxygen Delivery Method Room Air 04/29/24 09:52 <Lito Hinds MD - Last Filed: 04/28/24 22:49> Initial Vital Signs Temperature 98.1 F 04/28/24 15:18 Temperature Source Temporal Artery Scan 04/28/24 15:18 Pulse Rate 97 04/28/24 15:18 Pulse Rhythm Regular 04/28/24 15:18 Respiratory Rate 18 04/28/24 15:18 Blood Pressure 113/72 04/28/24 15:18 Blood Pressure Mean 85 04/28/24 15:18 Blood Pressure Position Sitting 04/28/24 15:18 Pulse Oximetry 95 04/28/24 15:18 Oxygen Delivery Method Room Air 04/28/24 15:18 Vital Signs Temperature 98.1 F 04/28/24 15:18 Pulse Rate 97 04/28/24 15:18 Respiratory Rate 18 04/28/24 15:18 Blood Pressure 113/72 04/28/24 15:18 Pulse Oximetry 95 04/28/24 15:18 Oxygen Delivery Method Room Air 04/28/24 15:18 Temperature 98.1 F 04/29/24 09:52 Pulse Rate 81 04/29/24 09:52 Respiratory Rate 16 04/29/24 09:52 Blood Pressure 135/78 04/29/24 09:52 Pulse Oximetry 97 04/29/24 09:52 Oxygen Delivery Method Room Air 04/29/24 09:52 <Alex Young MD - Last Filed: 04/29/24 07:27> Initial Vital Signs Temperature 98.1 F 04/28/24 15:18 Temperature Source Temporal Artery Scan 04/28/24 15:18 Pulse Rate 97 04/28/24 15:18 Pulse Rhythm Regular 04/28/24 15:18 Respiratory Rate 18 04/28/24 15:18 Blood Pressure 113/72 04/28/24 15:18 Blood Pressure Mean 85 04/28/24 15:18 Blood Pressure Position Sitting 04/28/24 15:18 Pulse Oximetry 95 04/28/24 15:18 Oxygen Delivery Method Room Air 04/28/24 15:18 Vital Signs Temperature 98.1 F 04/28/24 15:18 Pulse Rate 97 04/28/24 15:18 Respiratory Rate 18 04/28/24 15:18 Blood Pressure 113/72 04/28/24 15:18 Pulse Oximetry 95 04/28/24 15:18 Oxygen Delivery Method Room Air 04/28/24 15:18 Temperature 98.1 F 04/29/24 09:52 Pulse Rate 81 04/29/24 09:52 Respiratory Rate 16 04/29/24 09:52 Blood Pressure 135/78 04/29/24 09:52 Pulse Oximetry 97 04/29/24 09:52 Oxygen Delivery Method Room Air 04/29/24 09:52 <Cristian Kurtz DO - Last Filed: 04/29/24 10:16> Medications Administered Medications: Discontinued Medications Generic Name Dose Route Start Last Admin Trade Name Freq PRN Reason Stop Dose Admin Bupropion HCl 300 mg 04/29/24 09:48 04/29/24 09:57 Bupropion Xl 150 Mg Tablet PO 04/29/24 09:49 300 mg ONCE ONE Administration Potassium Bicarbonate 25 meq 04/28/24 18:45 04/28/24 18:47 Potassium Bicarb 25 Meq Effervescent Tab PO 04/28/24 18:46 25 meq ONCE ONE Administration Sertraline HCl 150 mg 04/29/24 09:48 04/29/24 09:58 Sertraline 100 Mg Tablet PO 04/29/24 09:49 150 mg ONCE ONE Administration <Lito Hinds MD - Last Filed: 04/28/24 22:49> Discontinued Medications Generic Name Dose Route Start Last Admin Trade Name Freq PRN Reason Stop Dose Admin Bupropion HCl 300 mg 04/29/24 09:48 04/29/24 09:57 Bupropion Xl 150 Mg Tablet PO 04/29/24 09:49 300 mg ONCE ONE Administration Potassium Bicarbonate 25 meq 04/28/24 18:45 04/28/24 18:47 Potassium Bicarb 25 Meq Effervescent Tab PO 04/28/24 18:46 25 meq ONCE ONE Administration Sertraline HCl 150 mg 04/29/24 09:48 04/29/24 09:58 Sertraline 100 Mg Tablet PO 04/29/24 09:49 150 mg ONCE ONE Administration <Alex Young MD - Last Filed: 04/29/24 07:27> Discontinued Medications Generic Name Dose Route Start Last Admin Trade Name Jose Antonio PRN Reason Stop Dose Admin Bupropion HCl 300 mg 04/29/24 09:48 04/29/24 09:57 Bupropion Xl 150 Mg Tablet PO 04/29/24 09:49 300 mg ONCE ONE Administration Potassium Bicarbonate 25 meq 04/28/24 18:45 04/28/24 18:47 Potassium Bicarb 25 Meq Effervescent Tab PO 04/28/24 18:46 25 meq ONCE ONE Administration Sertraline HCl 150 mg 04/29/24 09:48 04/29/24 09:58 Sertraline 100 Mg Tablet PO 04/29/24 09:49 150 mg ONCE ONE Administration <Cristian Kurtz DO - Last Filed: 04/29/24 10:16> MDM - Psych MDM Narrative Medical decision making narrative: Hector -- inherited this patient at change of shift overnight. She has rested without event. It is my understanding that has been accepted to [facility] for psychiatric cares. Anticipating transport shortly this morning. <Alex Young MD - Last Filed: 04/29/24 07:27> While waiting for transport patient was given her sertraline and bupropion. EMS arrived and transferred the patient afterwards <Cristian Kurtz DO - Last Filed: 04/29/24 10:16> Lab Data Labs: Lab Results 04/28/24 04/28/24 04/28/24 Range/Units 17:26 17:30 17:30 WBC 5.98 (4.50-11.00) K/uL RBC 4.04 (4.00-5.20) m/uL Hgb 13.1 (12.0-16.0) gm/dL Hct 39.1 (33.0-51.0) % MCV 97 (80-100) fL MCH 32 (26-34) pg MCHC 34 (32-36) gm/dL RDW Coeff of Birdie 12.9 (11.5-15.5) % Plt Count 265 (140-440) K/uL Neut % (Auto) 53.8 (42.0-72.0) % Lymph % (Auto) 33.1 (20-44) % [place] % (Auto) 6.9 (0.0-11.0) % Eos % (Auto) 4.7 (0.0-7.0) % Baso % (Auto) 1.0 (0.0-3.0) % Neut # (Auto) 3.22 (1.7-7.0) K/uL Lymph # (Auto) 1.98 (0.90-2.90) K/uL [place] # (Auto) 0.40 (0.00-0.90) K/UL Eos # (Auto) 0.28 (0.00-0.50) K/uL Baso # (Auto) 0.06 (0.00-0.30) K/uL Abs Immat Gran (auto) 0.03 (0.00-0.30) K/uL Imm/Tot Granulo (auto) 0.5 % Sodium 136 (135-149) mmol/L Potassium 3.1 L (3.6-5.1) mmol/L Chloride 110 (96-114) mmol/L Carbon Dioxide 16 L (20-32) mmol/L Anion Gap 10 (7-15) mEq/L BUN 12 (7-30) mg/dL Creatinine 0.7 (0.5-1.5) mg/dL Estimated Creat Clear 49.80 Estimated GFR 95 ml/min Glucose 119 H (60-115) mg/dL Calcium 8.8 (8.4-10.6) mg/dL Magnesium 2.3 Cancelled (1.5-2.6) mg/dL Total Bilirubin < 0.1 L (0.1-1.5) mg/dL Direct Bilirubin (0.0-0.5) mg/dL AST (12-35) U/L ALT (4-35) U/L Alkaline Phosphatase (40-150) U/L Total Protein (6.0-8.3) g/dL Albumin (3.3-5.0) g/dL TSH (0.270-4.20) uIU/mL Urine Color (Yellow) Urine Appearance (Clear) Urine pH (5.0-8.5) Ur Specific Ages [place] (1.000-1.030) Urine Protein (Negative) Urine Glucose (UA) (Negative) Urine Ketones (Negative) Urine Blood (Negative) Urine Nitrite (Negative) Urine Bilirubin (Negative) Urine Urobilinogen (0.2-1.0) Ur Leukocyte Esterase (Negative) Salicylates (1.0-10) mg/dL Urine Opiates Screen (Negative) Ur Oxycodone Screen (Negative) Urine Methadone Screen (Negative) Acetaminophen (10.0-30.0) ug/mL Ur Barbiturates Screen (Negative) U Tricyclic Antidepress (Negative) Ur Phencyclidine Scrn (Negative) Ur Amphetamines Screen (Negative) U Methamphetamines Scrn (Negative) U Benzodiazepines Scrn (Negative) Urine Cocaine Screen (Negative) U Marijuana (THC) Screen (Negative) Ur Drug Screen Comment Ethyl Alcohol (0.01-0.03) % SARS-CoV-2 (PCR) Negative SARS-CoV-2 (Negative) Lab Acknowledgement 04/28/24 04/28/24 04/28/24 Range/Units 17:30 17:30 17:30 WBC (4.50-11.00) K/uL RBC (4.00-5.20) m/uL Hgb (12.0-16.0) gm/dL Hct (33.0-51.0) % MCV (80-100) fL MCH (26-34) pg MCHC (32-36) gm/dL RDW Coeff of Birdie (11.5-15.5) % Plt Count (140-440) K/uL Neut % (Auto) (42.0-72.0) % Lymph % (Auto) (20-44) % [place] % (Auto) (0.0-11.0) % Eos % (Auto) (0.0-7.0) % Baso % (Auto) (0.0-3.0) % Neut # (Auto) (1.7-7.0) K/uL Lymph # (Auto) (0.90-2.90) K/uL [place] # (Auto) (0.00-0.90) K/UL Eos # (Auto) (0.00-0.50) K/uL Baso # (Auto) (0.00-0.30) K/uL Abs Immat Gran (auto) (0.00-0.30) K/uL Imm/Tot Granulo (auto) % Sodium (135-149) mmol/L Potassium (3.6-5.1) mmol/L Chloride (96-114) mmol/L Carbon Dioxide (20-32) mmol/L Anion Gap (7-15) mEq/L BUN (7-30) mg/dL Creatinine (0.5-1.5) mg/dL Estimated Creat Clear Estimated GFR ml/min Glucose (60-115) mg/dL Calcium (8.4-10.6) mg/dL Magnesium (1.5-2.6) mg/dL Total Bilirubin Cancelled (0.1-1.5) mg/dL Direct Bilirubin 0.0 Cancelled (0.0-0.5) mg/dL AST 40 H Cancelled (12-35) U/L ALT 60 H (4-35) U/L Alkaline Phosphatase (40-150) U/L Total Protein (6.0-8.3) g/dL Albumin (3.3-5.0) g/dL TSH (0.270-4.20) uIU/mL Urine Color (Yellow) Urine Appearance (Clear) Urine pH (5.0-8.5) Ur Specific Ages [place] (1.000-1.030) Urine Protein (Negative) Urine Glucose (UA) (Negative) Urine Ketones (Negative) Urine Blood (Negative) Urine Nitrite (Negative) Urine Bilirubin (Negative) Urine Urobilinogen (0.2-1.0) Ur Leukocyte Esterase (Negative) Salicylates (1.0-10) mg/dL Urine Opiates Screen (Negative) Ur Oxycodone Screen (Negative) Urine Methadone Screen (Negative) Acetaminophen (10.0-30.0) ug/mL Ur Barbiturates Screen (Negative) U Tricyclic Antidepress (Negative) Ur Phencyclidine Scrn (Negative) Ur Amphetamines Screen (Negative) U Methamphetamines Scrn (Negative) U Benzodiazepines Scrn (Negative) Urine Cocaine Screen (Negative) U Marijuana (THC) Screen (Negative) Ur Drug Screen Comment Ethyl Alcohol (0.01-0.03) % SARS-CoV-2 (PCR) (Negative) Lab Acknowledgement 11/11/24 11/11/24 11/11/24 Range/Units 17:30 17:30 17:30 WBC (4.50-11.00) K/uL RBC (4.00-5.20) m/uL Hgb (12.0-16.0) gm/dL Hct (33.0-51.0) % MCV (80-100) fL MCH (26-34) pg MCHC (32-36) gm/dL RDW Coeff of Birdie (11.5-15.5) % Plt Count (140-440) K/uL Neut % (Auto) (42.0-72.0) % Lymph % (Auto) (20-44) % [place] % (Auto) (0.0-11.0) % Eos % (Auto) (0.0-7.0) % Baso % (Auto) (0.0-3.0) % Neut # (Auto) (1.7-7.0) K/uL Lymph # (Auto) (0.90-2.90) K/uL [place] # (Auto) (0.00-0.90) K/UL Eos # (Auto) (0.00-0.50) K/uL Baso # (Auto) (0.00-0.30) K/uL Abs Immat Gran (auto) (0.00-0.30) K/uL Imm/Tot Granulo (auto) % Sodium (135-149) mmol/L Potassium (3.6-5.1) mmol/L Chloride (96-114) mmol/L Carbon Dioxide (20-32) mmol/L Anion Gap (7-15) mEq/L BUN (7-30) mg/dL Creatinine (0.5-1.5) mg/dL Estimated Creat Clear Estimated GFR ml/min Glucose (60-115) mg/dL Calcium (8.4-10.6) mg/dL Magnesium (1.5-2.6) mg/dL Total Bilirubin (0.1-1.5) mg/dL Direct Bilirubin (0.0-0.5) mg/dL AST (12-35) U/L ALT Cancelled (4-35) U/L Alkaline Phosphatase 66 Cancelled (40-150) U/L Total Protein 6.3 Cancelled (6.0-8.3) g/dL Albumin 3.7 (3.3-5.0) g/dL TSH (0.270-4.20) uIU/mL Urine Color (Yellow) Urine Appearance (Clear) Urine pH (5.0-8.5) Ur Specific Ages [place] (1.000-1.030) Urine Protein (Negative) Urine Glucose (UA) (Negative) Urine Ketones (Negative) Urine Blood (Negative) Urine Nitrite (Negative) Urine Bilirubin (Negative) Urine Urobilinogen (0.2-1.0) Ur Leukocyte Esterase (Negative) Salicylates (1.0-10) mg/dL Urine Opiates Screen (Negative) Ur Oxycodone Screen (Negative) Urine Methadone Screen (Negative) Acetaminophen (10.0-30.0) ug/mL Ur Barbiturates Screen (Negative) U Tricyclic Antidepress (Negative) Ur Phencyclidine Scrn (Negative) Ur Amphetamines Screen (Negative) U Methamphetamines Scrn (Negative) U Benzodiazepines Scrn (Negative) Urine Cocaine Screen (Negative) U Marijuana (THC) Screen (Negative) Ur Drug Screen Comment Ethyl Alcohol (0.01-0.03) % SARS-CoV-2 (PCR) (Negative) Lab Acknowledgement 04/28/24 04/28/24 04/28/24 Range/Units 17:30 18:58 21:11 WBC (4.50-11.00) K/uL RBC (4.00-5.20) m/uL Hgb (12.0-16.0) gm/dL Hct (33.0-51.0) % MCV (80-100) fL MCH (26-34) pg MCHC (32-36) gm/dL RDW Coeff of Birdie (11.5-15.5) % Plt Count (140-440) K/uL Neut % (Auto) (42.0-72.0) % Lymph % (Auto) (20-44) % [place] % (Auto) (0.0-11.0) % Eos % (Auto) (0.0-7.0) % Baso % (Auto) (0.0-3.0) % Neut # (Auto) (1.7-7.0) K/uL Lymph # (Auto) (0.90-2.90) K/uL [place] # (Auto) (0.00-0.90) K/UL Eos # (Auto) (0.00-0.50) K/uL Baso # (Auto) (0.00-0.30) K/uL Abs Immat Gran (auto) (0.00-0.30) K/uL Imm/Tot Granulo (auto) % Sodium (135-149) mmol/L Potassium (3.6-5.1) mmol/L Chloride (96-114) mmol/L Carbon Dioxide (20-32) mmol/L Anion Gap (7-15) mEq/L BUN (7-30) mg/dL Creatinine (0.5-1.5) mg/dL Estimated Creat Clear Estimated GFR ml/min Glucose (60-115) mg/dL Calcium (8.4-10.6) mg/dL Magnesium (1.5-2.6) mg/dL Total Bilirubin (0.1-1.5) mg/dL Direct Bilirubin (0.0-0.5) mg/dL AST (12-35) U/L ALT (4-35) U/L Alkaline Phosphatase (40-150) U/L Total Protein (6.0-8.3) g/dL Albumin Cancelled (3.3-5.0) g/dL TSH 1.570 (0.270-4.20) uIU/mL Urine Color Yellow (Yellow) Urine Appearance Clear (Clear) Urine pH 5.5 (5.0-8.5) Ur Specific Ages [place] 1.025 (1.000-1.030) Urine Protein Negative (Negative) Urine Glucose (UA) Negative (Negative) Urine Ketones Negative (Negative) Urine Blood Negative (Negative) Urine Nitrite Negative (Negative) Urine Bilirubin Negative (Negative) Urine Urobilinogen 0.2 (0.2-1.0) Ur Leukocyte Esterase Negative (Negative) Salicylates < 1.0 L (1.0-10) mg/dL Urine Opiates Screen Negative (Negative) Ur Oxycodone Screen Negative (Negative) Urine Methadone Screen Negative (Negative) Acetaminophen < 10.0 L (10.0-30.0) ug/mL Ur Barbiturates Screen Negative (Negative) U Tricyclic Antidepress Negative (Negative) Ur Phencyclidine Scrn Negative (Negative) Ur Amphetamines Screen Negative (Negative) U Methamphetamines Scrn Negative (Negative) U Benzodiazepines Scrn Negative (Negative) Urine Cocaine Screen Negative (Negative) U Marijuana (THC) Screen Negative (Negative) Ur Drug Screen Comment See Note Ethyl Alcohol < 0.01 L (0.01-0.03) % SARS-CoV-2 (PCR) (Negative) Lab Acknowledgement Test Added <Lito Hinds MD - Last Filed: 04/28/24 22:49> Lab Results 04/28/24 04/28/24 04/28/24 Range/Units 17:26 17:30 17:30 WBC 5.98 (4.50-11.00) K/uL RBC 4.04 (4.00-5.20) m/uL Hgb 13.1 (12.0-16.0) gm/dL Hct 39.1 (33.0-51.0) % MCV 97 (80-100) fL MCH 32 (26-34) pg MCHC 34 (32-36) gm/dL RDW Coeff of Birdie 12.9 (11.5-15.5) % Plt Count 265 (140-440) K/uL Neut % (Auto) 53.8 (42.0-72.0) % Lymph % (Auto) 33.1 (20-44) % [place] % (Auto) 6.9 (0.0-11.0) % Eos % (Auto) 4.7 (0.0-7.0) % Baso % (Auto) 1.0 (0.0-3.0) % Neut # (Auto) 3.22 (1.7-7.0) K/uL Lymph # (Auto) 1.98 (0.90-2.90) K/uL [place] # (Auto) 0.40 (0.00-0.90) K/UL Eos # (Auto) 0.28 (0.00-0.50) K/uL Baso # (Auto) 0.06 (0.00-0.30) K/uL Abs Immat Gran (auto) 0.03 (0.00-0.30) K/uL Imm/Tot Granulo (auto) 0.5 % Sodium 136 (135-149) mmol/L Potassium 3.1 L (3.6-5.1) mmol/L Chloride 110 (96-114) mmol/L Carbon Dioxide 16 L (20-32) mmol/L Anion Gap 10 (7-15) mEq/L BUN 12 (7-30) mg/dL Creatinine 0.7 (0.5-1.5) mg/dL Estimated Creat Clear 49.80 Estimated GFR 95 ml/min Glucose 119 H (60-115) mg/dL Calcium 8.8 (8.4-10.6) mg/dL Magnesium 2.3 Cancelled (1.5-2.6) mg/dL Total Bilirubin < 0.1 L (0.1-1.5) mg/dL Direct Bilirubin (0.0-0.5) mg/dL AST (12-35) U/L ALT (4-35) U/L Alkaline Phosphatase (40-150) U/L Total Protein (6.0-8.3) g/dL Albumin (3.3-5.0) g/dL TSH (0.270-4.20) uIU/mL Urine Color (Yellow) Urine Appearance (Clear) Urine pH (5.0-8.5) Ur Specific Ages [place] (1.000-1.030) Urine Protein (Negative) Urine Glucose (UA) (Negative) Urine Ketones (Negative) Urine Blood (Negative) Urine Nitrite (Negative) Urine Bilirubin (Negative) Urine Urobilinogen (0.2-1.0) Ur Leukocyte Esterase (Negative) Salicylates (1.0-10) mg/dL Urine Opiates Screen (Negative) Ur Oxycodone Screen (Negative) Urine Methadone Screen (Negative) Acetaminophen (10.0-30.0) ug/mL Ur Barbiturates Screen (Negative) U Tricyclic Antidepress (Negative) Ur Phencyclidine Scrn (Negative) Ur Amphetamines Screen (Negative) U Methamphetamines Scrn (Negative) U Benzodiazepines Scrn (Negative) Urine Cocaine Screen (Negative) U Marijuana (THC) Screen (Negative) Ur Drug Screen Comment Ethyl Alcohol (0.01-0.03) % SARS-CoV-2 (PCR) Negative SARS-CoV-2 (Negative) Lab Acknowledgement 04/28/24 04/28/24 04/28/24 Range/Units 17:30 17:30 17:30 WBC (4.50-11.00) K/uL RBC (4.00-5.20) m/uL Hgb (12.0-16.0) gm/dL Hct (33.0-51.0) % MCV (80-100) fL MCH (26-34) pg MCHC (32-36) gm/dL RDW Coeff of Birdie (11.5-15.5) % Plt Count (140-440) K/uL Neut % (Auto) (42.0-72.0) % Lymph % (Auto) (20-44) % [place] % (Auto) (0.0-11.0) % Eos % (Auto) (0.0-7.0) % Baso % (Auto) (0.0-3.0) % Neut # (Auto) (1.7-7.0) K/uL Lymph # (Auto) (0.90-2.90) K/uL [place] # (Auto) (0.00-0.90) K/UL Eos # (Auto) (0.00-0.50) K/uL Baso # (Auto) (0.00-0.30) K/uL Abs Immat Gran (auto) (0.00-0.30) K/uL Imm/Tot Granulo (auto) % Sodium (135-149) mmol/L Potassium (3.6-5.1) mmol/L Chloride (96-114) mmol/L Carbon Dioxide (20-32) mmol/L Anion Gap (7-15) mEq/L BUN (7-30) mg/dL Creatinine (0.5-1.5) mg/dL Estimated Creat Clear Estimated GFR ml/min Glucose (60-115) mg/dL Calcium (8.4-10.6) mg/dL Magnesium (1.5-2.6) mg/dL Total Bilirubin Cancelled (0.1-1.5) mg/dL Direct Bilirubin 0.0 Cancelled (0.0-0.5) mg/dL AST 40 H Cancelled (12-35) U/L ALT 60 H (4-35) U/L Alkaline Phosphatase (40-150) U/L Total Protein (6.0-8.3) g/dL Albumin (3.3-5.0) g/dL TSH (0.270-4.20) uIU/mL Urine Color (Yellow) Urine Appearance (Clear) Urine pH (5.0-8.5) Ur Specific Ages [place] (1.000-1.030) Urine Protein (Negative) Urine Glucose (UA) (Negative) Urine Ketones (Negative) Urine Blood (Negative) Urine Nitrite (Negative) Urine Bilirubin (Negative) Urine Urobilinogen (0.2-1.0) Ur Leukocyte Esterase (Negative) Salicylates (1.0-10) mg/dL Urine Opiates Screen (Negative) Ur Oxycodone Screen (Negative) Urine Methadone Screen (Negative) Acetaminophen (10.0-30.0) ug/mL Ur Barbiturates Screen (Negative) U Tricyclic Antidepress (Negative) Ur Phencyclidine Scrn (Negative) Ur Amphetamines Screen (Negative) U Methamphetamines Scrn (Negative) U Benzodiazepines Scrn (Negative) Urine Cocaine Screen (Negative) U Marijuana (THC) Screen (Negative) Ur Drug Screen Comment Ethyl Alcohol (0.01-0.03) % SARS-CoV-2 (PCR) (Negative) Lab Acknowledgement 04/28/24 04/28/24 04/28/24 Range/Units 17:30 17:30 17:30 WBC (4.50-11.00) K/uL RBC (4.00-5.20) m/uL Hgb (12.0-16.0) gm/dL Hct (33.0-51.0) % MCV (80-100) fL MCH (26-34) pg MCHC (32-36) gm/dL RDW Coeff of Birdie (11.5-15.5) % Plt Count (140-440) K/uL Neut % (Auto) (42.0-72.0) % Lymph % (Auto) (20-44) % [place] % (Auto) (0.0-11.0) % Eos % (Auto) (0.0-7.0) % Baso % (Auto) (0.0-3.0) % Neut # (Auto) (1.7-7.0) K/uL Lymph # (Auto) (0.90-2.90) K/uL [place] # (Auto) (0.00-0.90) K/UL Eos # (Auto) (0.00-0.50) K/uL Baso # (Auto) (0.00-0.30) K/uL Abs Immat Gran (auto) (0.00-0.30) K/uL Imm/Tot Granulo (auto) % Sodium (135-149) mmol/L Potassium (3.6-5.1) mmol/L Chloride (96-114) mmol/L Carbon Dioxide (20-32) mmol/L Anion Gap (7-15) mEq/L BUN (7-30) mg/dL Creatinine (0.5-1.5) mg/dL Estimated Creat Clear Estimated GFR ml/min Glucose (60-115) mg/dL Calcium (8.4-10.6) mg/dL Magnesium (1.5-2.6) mg/dL Total Bilirubin (0.1-1.5) mg/dL Direct Bilirubin (0.0-0.5) mg/dL AST (12-35) U/L ALT Cancelled (4-35) U/L Alkaline Phosphatase 66 Cancelled (40-150) U/L Total Protein 6.3 Cancelled (6.0-8.3) g/dL Albumin 3.7 (3.3-5.0) g/dL TSH (0.270-4.20) uIU/mL Urine Color (Yellow) Urine Appearance (Clear) Urine pH (5.0-8.5) Ur Specific Ages [place] (1.000-1.030) Urine Protein (Negative) Urine Glucose (UA) (Negative) Urine Ketones (Negative) Urine Blood (Negative) Urine Nitrite (Negative) Urine Bilirubin (Negative) Urine Urobilinogen (0.2-1.0) Ur Leukocyte Esterase (Negative) Salicylates (1.0-10) mg/dL Urine Opiates Screen (Negative) Ur Oxycodone Screen (Negative) Urine Methadone Screen (Negative) Acetaminophen (10.0-30.0) ug/mL Ur Barbiturates Screen (Negative) U Tricyclic Antidepress (Negative) Ur Phencyclidine Scrn (Negative) Ur Amphetamines Screen (Negative) U Methamphetamines Scrn (Negative) U Benzodiazepines Scrn (Negative) Urine Cocaine Screen (Negative) U Marijuana (THC) Screen (Negative) Ur Drug Screen Comment Ethyl Alcohol (0.01-0.03) % SARS-CoV-2 (PCR) (Negative) Lab Acknowledgement 04/28/24 04/28/24 04/28/24 Range/Units 17:30 18:58 21:11 WBC (4.50-11.00) K/uL RBC (4.00-5.20) m/uL Hgb (12.0-16.0) gm/dL Hct (33.0-51.0) % MCV (80-100) fL MCH (26-34) pg MCHC (32-36) gm/dL RDW Coeff of Birdie (11.5-15.5) % Plt Count (140-440) K/uL Neut % (Auto) (42.0-72.0) % Lymph % (Auto) (20-44) % [place] % (Auto) (0.0-11.0) % Eos % (Auto) (0.0-7.0) % Baso % (Auto) (0.0-3.0) % Neut # (Auto) (1.7-7.0) K/uL Lymph # (Auto) (0.90-2.90) K/uL [place] # (Auto) (0.00-0.90) K/UL Eos # (Auto) (0.00-0.50) K/uL Baso # (Auto) (0.00-0.30) K/uL Abs Immat Gran (auto) (0.00-0.30) K/uL Imm/Tot Granulo (auto) % Sodium (135-149) mmol/L Potassium (3.6-5.1) mmol/L Chloride (96-114) mmol/L Carbon Dioxide (20-32) mmol/L Anion Gap (7-15) mEq/L BUN (7-30) mg/dL Creatinine (0.5-1.5) mg/dL Estimated Creat Clear Estimated GFR ml/min Glucose (60-115) mg/dL Calcium (8.4-10.6) mg/dL Magnesium (1.5-2.6) mg/dL Total Bilirubin (0.1-1.5) mg/dL Direct Bilirubin (0.0-0.5) mg/dL AST (12-35) U/L ALT (4-35) U/L Alkaline Phosphatase (40-150) U/L Total Protein (6.0-8.3) g/dL Albumin Cancelled (3.3-5.0) g/dL TSH 1.570 (0.270-4.20) uIU/mL Urine Color Yellow (Yellow) Urine Appearance Clear (Clear) Urine pH 5.5 (5.0-8.5) Ur Specific Ages [place] 1.025 (1.000-1.030) Urine Protein Negative (Negative) Urine Glucose (UA) Negative (Negative) Urine Ketones Negative (Negative) Urine Blood Negative (Negative) Urine Nitrite Negative (Negative) Urine Bilirubin Negative (Negative) Urine Urobilinogen 0.2 (0.2-1.0) Ur Leukocyte Esterase Negative (Negative) Salicylates < 1.0 L (1.0-10) mg/dL Urine Opiates Screen Negative (Negative) Ur Oxycodone Screen Negative (Negative) Urine Methadone Screen Negative (Negative) Acetaminophen < 10.0 L (10.0-30.0) ug/mL Ur Barbiturates Screen Negative (Negative) U Tricyclic Antidepress Negative (Negative) Ur Phencyclidine Scrn Negative (Negative) Ur Amphetamines Screen Negative (Negative) U Methamphetamines Scrn Negative (Negative) U Benzodiazepines Scrn Negative (Negative) Urine Cocaine Screen Negative (Negative) U Marijuana (THC) Screen Negative (Negative) Ur Drug Screen Comment See Note Ethyl Alcohol < 0.01 L (0.01-0.03) % SARS-CoV-2 (PCR) (Negative) Lab Acknowledgement Test Added <Alex Young MD - Last Filed: 04/29/24 07:27> Lab Results 04/28/24 04/28/24 04/28/24 Range/Units 17:26 17:30 17:30 WBC 5.98 (4.50-11.00) K/uL RBC 4.04 (4.00-5.20) m/uL Hgb 13.1 (12.0-16.0) gm/dL Hct 39.1 (33.0-51.0) % MCV 97 (80-100) fL MCH 32 (26-34) pg MCHC 34 (32-36) gm/dL RDW Coeff of Birdie 12.9 (11.5-15.5) % Plt Count 265 (140-440) K/uL Neut % (Auto) 53.8 (42.0-72.0) % Lymph % (Auto) 33.1 (20-44) % [place] % (Auto) 6.9 (0.0-11.0) % Eos % (Auto) 4.7 (0.0-7.0) % Baso % (Auto) 1.0 (0.0-3.0) % Neut # (Auto) 3.22 (1.7-7.0) K/uL Lymph # (Auto) 1.98 (0.90-2.90) K/uL [place] # (Auto) 0.40 (0.00-0.90) K/UL Eos # (Auto) 0.28 (0.00-0.50) K/uL Baso # (Auto) 0.06 (0.00-0.30) K/uL Abs Immat Gran (auto) 0.03 (0.00-0.30) K/uL Imm/Tot Granulo (auto) 0.5 % Sodium 136 (135-149) mmol/L Potassium 3.1 L (3.6-5.1) mmol/L Chloride 110 (96-114) mmol/L Carbon Dioxide 16 L (20-32) mmol/L Anion Gap 10 (7-15) mEq/L BUN 12 (7-30) mg/dL Creatinine 0.7 (0.5-1.5) mg/dL Estimated Creat Clear 49.80 Estimated GFR 95 ml/min Glucose 119 H (60-115) mg/dL Calcium 8.8 (8.4-10.6) mg/dL Magnesium 2.3 Cancelled (1.5-2.6) mg/dL Total Bilirubin < 0.1 L (0.1-1.5) mg/dL Direct Bilirubin (0.0-0.5) mg/dL AST (12-35) U/L ALT (4-35) U/L Alkaline Phosphatase (40-150) U/L Total Protein (6.0-8.3) g/dL Albumin (3.3-5.0) g/dL TSH (0.270-4.20) uIU/mL Urine Color (Yellow) Urine Appearance (Clear) Urine pH (5.0-8.5) Ur Specific Ages [place] (1.000-1.030) Urine Protein (Negative) Urine Glucose (UA) (Negative) Urine Ketones (Negative) Urine Blood (Negative) Urine Nitrite (Negative) Urine Bilirubin (Negative) Urine Urobilinogen (0.2-1.0) Ur Leukocyte Esterase (Negative) Salicylates (1.0-10) mg/dL Urine Opiates Screen (Negative) Ur Oxycodone Screen (Negative) Urine Methadone Screen (Negative) Acetaminophen (10.0-30.0) ug/mL Ur Barbiturates Screen (Negative) U Tricyclic Antidepress (Negative) Ur Phencyclidine Scrn (Negative) Ur Amphetamines Screen (Negative) U Methamphetamines Scrn (Negative) U Benzodiazepines Scrn (Negative) Urine Cocaine Screen (Negative) U Marijuana (THC) Screen (Negative) Ur Drug Screen Comment Ethyl Alcohol (0.01-0.03) % SARS-CoV-2 (PCR) Negative SARS-CoV-2 (Negative) Lab Acknowledgement 04/28/24 04/28/24 04/28/24 Range/Units 17:30 17:30 17:30 WBC (4.50-11.00) K/uL RBC (4.00-5.20) m/uL Hgb (12.0-16.0) gm/dL Hct (33.0-51.0) % MCV (80-100) fL MCH (26-34) pg MCHC (32-36) gm/dL RDW Coeff of Birdie (11.5-15.5) % Plt Count (140-440) K/uL Neut % (Auto) (42.0-72.0) % Lymph % (Auto) (20-44) % [place] % (Auto) (0.0-11.0) % Eos % (Auto) (0.0-7.0) % Baso % (Auto) (0.0-3.0) % Neut # (Auto) (1.7-7.0) K/uL Lymph # (Auto) (0.90-2.90) K/uL [place] # (Auto) (0.00-0.90) K/UL Eos # (Auto) (0.00-0.50) K/uL Baso # (Auto) (0.00-0.30) K/uL Abs Immat Gran (auto) (0.00-0.30) K/uL Imm/Tot Granulo (auto) % Sodium (135-149) mmol/L Potassium (3.6-5.1) mmol/L Chloride (96-114) mmol/L Carbon Dioxide (20-32) mmol/L Anion Gap (7-15) mEq/L BUN (7-30) mg/dL Creatinine (0.5-1.5) mg/dL Estimated Creat Clear Estimated GFR ml/min Glucose (60-115) mg/dL Calcium (8.4-10.6) mg/dL Magnesium (1.5-2.6) mg/dL Total Bilirubin Cancelled (0.1-1.5) mg/dL Direct Bilirubin 0.0 Cancelled (0.0-0.5) mg/dL AST 40 H Cancelled (12-35) U/L ALT 60 H (4-35) U/L Alkaline Phosphatase (40-150) U/L Total Protein (6.0-8.3) g/dL Albumin (3.3-5.0) g/dL TSH (0.270-4.20) uIU/mL Urine Color (Yellow) Urine Appearance (Clear) Urine pH (5.0-8.5) Ur Specific Ages [place] (1.000-1.030) Urine Protein (Negative) Urine Glucose (UA) (Negative) Urine Ketones (Negative) Urine Blood (Negative) Urine Nitrite (Negative) Urine Bilirubin (Negative) Urine Urobilinogen (0.2-1.0) Ur Leukocyte Esterase (Negative) Salicylates (1.0-10) mg/dL Urine Opiates Screen (Negative) Ur Oxycodone Screen (Negative) Urine Methadone Screen (Negative) Acetaminophen (10.0-30.0) ug/mL Ur Barbiturates Screen (Negative) U Tricyclic Antidepress (Negative) Ur Phencyclidine Scrn (Negative) Ur Amphetamines Screen (Negative) U Methamphetamines Scrn (Negative) U Benzodiazepines Scrn (Negative) Urine Cocaine Screen (Negative) U Marijuana (THC) Screen (Negative) Ur Drug Screen Comment Ethyl Alcohol (0.01-0.03) % SARS-CoV-2 (PCR) (Negative) Lab Acknowledgement 04/28/24 04/28/24 04/28/24 Range/Units 17:30 17:30 17:30 WBC (4.50-11.00) K/uL RBC (4.00-5.20) m/uL Hgb (12.0-16.0) gm/dL Hct (33.0-51.0) % MCV (80-100) fL MCH (26-34) pg MCHC (32-36) gm/dL RDW Coeff of Birdie (11.5-15.5) % Plt Count (140-440) K/uL Neut % (Auto) (42.0-72.0) % Lymph % (Auto) (20-44) % [place] % (Auto) (0.0-11.0) % Eos % (Auto) (0.0-7.0) % Baso % (Auto) (0.0-3.0) % Neut # (Auto) (1.7-7.0) K/uL Lymph # (Auto) (0.90-2.90) K/uL [place] # (Auto) (0.00-0.90) K/UL Eos # (Auto) (0.00-0.50) K/uL Baso # (Auto) (0.00-0.30) K/uL Abs Immat Gran (auto) (0.00-0.30) K/uL Imm/Tot Granulo (auto) % Sodium (135-149) mmol/L Potassium (3.6-5.1) mmol/L Chloride (96-114) mmol/L Carbon Dioxide (20-32) mmol/L Anion Gap (7-15) mEq/L BUN (7-30) mg/dL Creatinine (0.5-1.5) mg/dL Estimated Creat Clear Estimated GFR ml/min Glucose (60-115) mg/dL Calcium (8.4-10.6) mg/dL Magnesium (1.5-2.6) mg/dL Total Bilirubin (0.1-1.5) mg/dL Direct Bilirubin (0.0-0.5) mg/dL AST (12-35) U/L ALT Cancelled (4-35) U/L Alkaline Phosphatase 66 Cancelled (40-150) U/L Total Protein 6.3 Cancelled (6.0-8.3) g/dL Albumin 3.7 (3.3-5.0) g/dL TSH (0.270-4.20) uIU/mL Urine Color (Yellow) Urine Appearance (Clear) Urine pH (5.0-8.5) Ur Specific Ages [place] (1.000-1.030) Urine Protein (Negative) Urine Glucose (UA) (Negative) Urine Ketones (Negative) Urine Blood (Negative) Urine Nitrite (Negative) Urine Bilirubin (Negative) Urine Urobilinogen (0.2-1.0) Ur Leukocyte Esterase (Negative) Salicylates (1.0-10) mg/dL Urine Opiates Screen (Negative) Ur Oxycodone Screen (Negative) Urine Methadone Screen (Negative) Acetaminophen (10.0-30.0) ug/mL Ur Barbiturates Screen (Negative) U Tricyclic Antidepress (Negative) Ur Phencyclidine Scrn (Negative) Ur Amphetamines Screen (Negative) U Methamphetamines Scrn (Negative) U Benzodiazepines Scrn (Negative) Urine Cocaine Screen (Negative) U Marijuana (THC) Screen (Negative) Ur Drug Screen Comment Ethyl Alcohol (0.01-0.03) % SARS-CoV-2 (PCR) (Negative) Lab Acknowledgement 04/28/24 04/28/24 04/28/24 Range/Units 17:30 18:58 21:11 WBC (4.50-11.00) K/uL RBC (4.00-5.20) m/uL Hgb (12.0-16.0) gm/dL Hct (33.0-51.0) % MCV (80-100) fL MCH (26-34) pg MCHC (32-36) gm/dL RDW Coeff of Birdie (11.5-15.5) % Plt Count (140-440) K/uL Neut % (Auto) (42.0-72.0) % Lymph % (Auto) (20-44) % [place] % (Auto) (0.0-11.0) % Eos % (Auto) (0.0-7.0) % Baso % (Auto) (0.0-3.0) % Neut # (Auto) (1.7-7.0) K/uL Lymph # (Auto) (0.90-2.90) K/uL [place] # (Auto) (0.00-0.90) K/UL Eos # (Auto) (0.00-0.50) K/uL Baso # (Auto) (0.00-0.30) K/uL Abs Immat Gran (auto) (0.00-0.30) K/uL Imm/Tot Granulo (auto) % Sodium (135-149) mmol/L Potassium (3.6-5.1) mmol/L Chloride (96-114) mmol/L Carbon Dioxide (20-32) mmol/L Anion Gap (7-15) mEq/L BUN (7-30) mg/dL Creatinine (0.5-1.5) mg/dL Estimated Creat Clear Estimated GFR ml/min Glucose (60-115) mg/dL Calcium (8.4-10.6) mg/dL Magnesium (1.5-2.6) mg/dL Total Bilirubin (0.1-1.5) mg/dL Direct Bilirubin (0.0-0.5) mg/dL AST (12-35) U/L ALT (4-35) U/L Alkaline Phosphatase (40-150) U/L Total Protein (6.0-8.3) g/dL Albumin Cancelled (3.3-5.0) g/dL TSH 1.570 (0.270-4.20) uIU/mL Urine Color Yellow (Yellow) Urine Appearance Clear (Clear) Urine pH 5.5 (5.0-8.5) Ur Specific Ages [place] 1.025 (1.000-1.030) Urine Protein Negative (Negative) Urine Glucose (UA) Negative (Negative) Urine Ketones Negative (Negative) Urine Blood Negative (Negative) Urine Nitrite Negative (Negative) Urine Bilirubin Negative (Negative) Urine Urobilinogen 0.2 (0.2-1.0) Ur Leukocyte Esterase Negative (Negative) Salicylates < 1.0 L (1.0-10) mg/dL Urine Opiates Screen Negative (Negative) Ur Oxycodone Screen Negative (Negative) Urine Methadone Screen Negative (Negative) Acetaminophen < 10.0 L (10.0-30.0) ug/mL Ur Barbiturates Screen Negative (Negative) U Tricyclic Antidepress Negative (Negative) Ur Phencyclidine Scrn Negative (Negative) Ur Amphetamines Screen Negative (Negative) U Methamphetamines Scrn Negative (Negative) U Benzodiazepines Scrn Negative (Negative) Urine Cocaine Screen Negative (Negative) U Marijuana (THC) Screen Negative (Negative) Ur Drug Screen Comment See Note Ethyl Alcohol < 0.01 L (0.01-0.03) % SARS-CoV-2 (PCR) (Negative) Lab Acknowledgement Test Added <Cristian Kurtz DO - Last Filed: 04/29/24 10:16> Discharge Plan Discharge Clinical Impression: Depression, Suicidal ideation <Lito Hinds MD - Last Filed: 04/28/24 22:49> Patient Disposition: Xfer Psychiatric Hosp <Lito Hinds MD - Last Filed: 04/28/24 22:49> Condition: Stable <Lito Hinds MD - Last Filed: 04/28/24 22:49> Prescriptions: No Action bupropion HCl 150 mg tablet extended release 24 hr 300 mg PO DAILY sertraline 100 mg tablet 150 mg PO DAILY celecoxib 200 mg capsule 200 mg PO DAILY GNP 9 mg PO QHS lurasidone 80 mg tablet 80 mg PO DAILY sennosides [senna] 8.6 mg tablet 8.6 - 17.2 mg PO DAILY PRN oxycodone-acetaminophen 5-325 mg tablet 1 tab PO 3XD PRN (Reason: pain) mirtazapine 7.5 mg tablet 7.5 mg PO QPM <Lito Hinds MD - Last Filed: 04/28/24 22:49> Stand Alone Forms: MyHealth Info Instructions <Lito Hinds MD - Last Filed: 04/28/24 22:49>
[2024-04-28 18:04] LABS: Albumin* 3.7 g/dL (3.3-5.0)
[2024-04-28 18:05] LABS: Chloride* 110 mmol/L (96-114); Potassium* 3.1 mmol/L (3.6-5.1); Sodium* 136 mmol/L (135-149)
[2024-04-28 18:07] LABS: Anion Gap 10 mEq/L (7-15); Carbon Dioxide* 16 mmol/L (20-32); Creatinine* 0.7 mg/dL (0.5-1.5); Estimated Glomerular Filt Rate 95 ml/min
[2024-04-28 18:08] LABS: Alanine Aminotransferase* 60 U/L (4-35); Alkaline Phosphatase* 66 U/L (40-150); Aspartate Amino Transferase* 40 U/L (12-35); Blood Urea Nitrogen* 12 mg/dL (7-30); Calcium* 8.8 mg/dL (8.4-10.6); Glucose* 119 mg/dL (60-115); Magnesium* 2.3 mg/dL (1.5-2.6); Total Protein* 6.3 g/dL (6.0-8.3)
[2024-04-28 18:11] LABS: Bilirubin Total* < 0.1 mg/dL (0.1-1.5)
[2024-04-28 18:12] LABS: Ethanol* < 0.01 % (0.01-0.03)
[2024-04-28 18:12] LABS: SARS PCR* Negative SARS-CoV-2 (Negative)
[2024-04-28] MEDS: POTASSIUM BICARB 25 MEQ EFFERVESCENT TAB PO (18:47)
[2024-04-28 19:24] LABS: Acetaminophen* < 10.0 ug/mL (10.0-30.0); Salicylate* < 1.0 mg/dL (1.0-10)
[2024-04-28 19:27] LABS: Appearance Urine Clear (Clear); Bilirubin Urine Negative (Negative); Blood Urine Negative (Negative); Color Urine Yellow (Yellow); Glucose Urine Negative (Negative); Ketones Urine Negative (Negative); Leukocyte Esterase Urine Negative (Negative); Nitrite Urine Negative (Negative); Protein Urine Negative (Negative); Specific Gravity Urine 1.025 (1.000-1.030); Urobilinogen Urine 0.2 (0.2-1.0); pH Urine 5.5 (5.0-8.5)
[2024-04-28 19:29] LABS: Amphetamine Screen Urine Negative (Negative); Barbiturate Screen Urine Negative (Negative); Benzodiazepines Screen Urine Negative (Negative); Cannabinoid Screen Urine Negative (Negative); Cocaine Screen Urine Negative (Negative); Methadone Screen Urine Negative (Negative); Methamphetamines Screen Urine Negative (Negative); Opiate Screen Urine Negative (Negative); Oxycodone Screen Urine Negative (Negative); Phencyclidine Screen Urine Negative (Negative); Tricyclic Antidepressant Urine Negative (Negative)
--- NOTE | 2024-04-28 19:49 | PC.SOCIAL ---
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 Per MD order for in-pt mental health placement, called [facility] mental health intake and spoke with Nick [phone] who states she can be evaluated for [facility]. Faxed requested information to [phone] and awaiting call back with decision on admit.
[2024-04-28 21:16] LABS: Basophils Absolute Auto 0.06 K/uL (0.00-0.30); Eosinophils Absolute Auto 0.28 K/uL (0.00-0.50); Eosinophils Percent Auto 4.7 % (0.0-7.0); Hematocrit 39.1 % (33.0-51.0); Hemoglobin* 13.1 gm/dL (12.0-16.0); Immature Granulocytes Abs Auto 0.03 K/uL (0.00-0.30); Immature Granulocytes Pct Auto 0.5 %; Lymphocytes Absolute Auto 1.98 K/uL (0.90-2.90); Lymphocytes Percent Auto 33.1 % (20-44); Mean Corpuscular HGB Conc 34 gm/dL (32-36); Mean Corpuscular Hemoglobin 32 pg (26-34); Mean Corpuscular Volume 97 fL (80-100); Monocytes Percent Auto 6.9 % (0.0-11.0); Neutrophils Absolute Auto 3.22 K/uL (1.7-7.0); Neutrophils Percent Auto 53.8 % (42.0-72.0); Platelet Count* 265 K/uL (140-440); RDW Coefficient of Variation % 12.9 % (11.5-15.5); Red Blood Count 4.04 m/uL (4.00-5.20); White Blood Count* 5.98 K/uL (4.50-11.00)
[2024-04-28 21:19] LABS: Slide Review Reflex No
[2024-04-28 23:39] VITALS: BP 126/81; PULSE 98; RESP 16; O2SAT 98
[2024-04-29 07:31] VITALS: BP 138/81; PULSE 72; RESP 16; TEMP 36.6; O2SAT 97
[2024-04-29 09:52] VITALS: BP 135/78; PULSE 81; RESP 16; TEMP 36.7; O2SAT 97
[2024-04-29] MEDS: buPROPion XL 150 MG TABLET 300 MG PO (09:57)
[2024-04-29] MEDS: SERTRALINE 100 MG TABLET 150 MG PO (09:58)
--- NOTE | 2024-04-29 10:00 | ED.NURSE ---
Permission from patient to speak with Roberth Arrieta from [facility] was obtained. Reviewed medication list with Meenakshi. This was reflected in our med list. 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
== END 2024-04-29 10:20 ==
PROVIDERS: Emergency Provider Family Medicine; PCP Student in an Organized Health Care Education/Training Program
DX: R45.851 Suicidal ideations (principal); F32.A Depression, unspecified
CPT/HCPCS: 36415; 80048; 80076; 80143; 80179; 80306; 81003; 82077; 83735; 84443; 85025; 87635; 99285; A9270

== ENCOUNTER 2024-04-29 10:10 | Outpatient (CLI) | payer MEDICARE, OTHER, SELFPAY | END 2024-04-29 10:11 | disposition home or self-care (01) | LOC: AMB 05-20 23:02 | PROVIDERS: PCP Student in an Organized Health Care Education/Training Program; Visit Provider Student in an Organized Health Care Education/Training Program | DX: F32.A Depression, unspecified (principal); R45.851 Suicidal ideations | CPT/HCPCS: A0425; A0428 ==